=== PATIENT | female | born 1935 | race Caucasian/White ===

== ENCOUNTER 2016-11-22 09:37 | Outpatient (CLI) | payer MEDICARE, BC ==
[~2016-11-22] VITALS: Ht 162.6 cm; Wt 55.5 kg
--- NOTE | ~2016-11-22 | HEMODYNAMI ---
PATIENT:PAUL QUISPE MEDICAL RECORD: [id number] : 39 LOCATION:[facility] ADMISSION DATE: 11/22/16 Generatedon:11/22/201614:01 Patient name: PAUL QUISPE Patient #: [id number] SSN: : 1935 Date of study: 11/22/2016 Page: Of Hemodynamic Procedure Report Patient Data Patient Demographics Procedure consent was obtained First Name: PAUL Gender: Female Last Name: JOSE ENRIQUE : 1935 Middle Initial: PAUL Age: 81 year(s) Patient #: [id number] Race: Unknown Additional ID: [id number] Contact details [address]: [address] [place] [address] State: [place] City: [place] Zip code: [address] Past Medical History Allergies Allergen Reaction Date Comments Reported Demerol 11/22/2016 Admission Admission Data Admission Date: 11/22/2016 Admission Time: 9:37 Height (in.): 64 BSA: 1.59 (m2) Height (cm.): 162.56 BMI: 20.94 (kg/m2) Weight (lbs.): 122 Weight (kg.): 55.34 Procedure Procedure Types Cath Procedure Peripheral Cath Diagnostic Procedure Cath Peripheral Kyphoplasty Kyphoplasty Lumbar Procedure Description Procedure Date Procedure Date: 11/22/2016 Procedure Start Time: 13:12 Procedure Staff Name Function Todd Vasquez MD Performing Physician Waldo Dao MD Additional personnel Julio Bacon RT Scrub Brooklynn Granger RN Nurse Kelly Donovan RN Nurse Emily Parker RT Lathe Mechanic Emily Parker RT Monitor Procedure Data Cath Procedure Fluoroscopy Diagnostic fluoroscopy Total fluoroscopy Time: 8.1 time: 8.1 min min Diagnostic fluoroscopy Total fluoroscopy dose: dose: 302.4 mGy 302.4 mGy Hemodynamics Rest BSA: 1.59 (m2) O2 Consumption: Estimated: 141.59 (ml/min) O2 Consumption indexed : Estimated:89.05 (ml/min/m) Heart Rate: 67 (bpm) Snapshots Pre Cath Intra NCS Post Cath Vital Signs Time Heart Resp SPO2 NIBP (mmHg) Rhythm Pain Sedation Rate (ipm) (%) Status Level (bpm) 12:46:44 88 14 100 Measuring NSR 0 (11) 10(A) , No pain 12:47:04 88 12 100 197/107(153) NSR 0 (11) 10(A) , No pain 12:51:25 85 18 100 162/104(131) NSR 0 (11) 10(A) , No pain 12:55:41 84 100 134/81(97) NSR 0 (11) 10(A) , No pain 12:59:50 84 100 127/76(99) NSR 0 (11) 10(A) , No pain 13:04:00 84 100 111/70(93) NSR 0 (11) 10(A) , No pain 13:08:06 83 100 101/64(81) NSR 0 (11) 10(A) , No pain 13:12:10 83 100 96/60(78) NSR 0 (11) 10(A) , No pain 13:16:10 83 100 104/61(86) NSR 0 (11) 10(A) , No pain 13:20:17 82 1 100 90/51(70) NSR 0 (11) 10(A) , No pain 13:24:17 83 4 100 101/56(73) NSR 0 (11) 10(A) , No pain 13:28:23 82 15 99 92/49(69) NSR 0 (11) 10(A) , No pain 13:32:26 82 99 87/47(66) NSR 0 (11) 10(A) , No pain 13:36:28 82 99 83/47(60) NSR 0 (11) 10(A) , No pain 13:40:30 82 0 99 81/43(61) NSR 0 (11) 10(A) , No pain 13:44:32 83 99 87/44(62) NSR 0 (11) 10(A) , No pain 13:48:35 84 0 99 93/44(68) NSR 0 (11) 10(A) , No pain 13:52:39 86 41 99 93/49(72) NSR 0 (11) 10(A) , No pain 13:56:41 87 0 99 101/55(82) NSR 0 (11) 10(A) , No pain 14:00:40 87 6 99 115/66(83) NSR 0 (11) 10(A) , No pain Procedure Log Time Note 12:32:44 Patient Height : 64 cm 12:32:54 Patient Weight : 122 kg 12:33:49 Time tracking: Regular hours 12:34:12 Plan of Care:Hemodynamics will remain stable., Cardiac rhythm will remain stable., Comfort level will be maintained., Respiratory function will remain adequate., Patient/ family verbilizes understanding of procedure., Procedure tolerated without complication., Recovers from procedure without complications.. 12:34:56 patient will be sedated with tiva. see anesthesia notes for monitoring of patient during procedure 12:35:23 Patient received from Outpatients to IR Alert and oriented. Tansferred to table in Prone position. 12:35:28 Correct patient and procedure confirmed by team. 12:35:35 Signed procedure consent form obtained from patient. 12:36:19 - 12:36:25 Use device set IR Diagnostic 12:36:26 Sterile Angiographic Pack opened to sterile field. 12:36:28 Bag Decanter opened to sterile field. 12:37:49 Kyphon INTRO NEEDLE TROCAR opened to sterile field. 12:37:50 Kyphon HEAD KNITTING MACHINE FIXER KIT opened to sterile field. 12:37:51 KYPHON CEMENT DELIVERY SYSTEM GUN opened to sterile field. 12:37:53 KYPHON CEMENT DELIVERY SYSTEM CEMENT CARTRDGES opened to sterile field. 12:37:55 Kyphon INFLATOR BONE TAMP 15/2 opened to sterile field. 12:38:08 - 12:38:15 H&P Date Dictated: 11/22/2016 Within 30 days and on chart.. 12:38:19 Family in waiting room. 12:38:22 Patient NPO since Midnight. 12:38:37 Patient allergic to Demerol 12:38:42 Is the patient allergic to Iodine/contrast media? No. 12:40:44 - 12:41:06 IV patent on arrival in left wrist with 0.9% NaCl at KVO. 12:41:21 Lumbar area was prepped with dura-prep and draped in sterile fashion 12:41:23 Sharps counted by scrub and verified by Ellen 12:41:25 Alarms reviewed by RCris Jaimes 12:41:26 - 12:44:53 ECG and BP/O2 sat monitors applied to patient. 12:44:54 Vital chart was started 12:44:55 Baseline sample Acquired. 12:44:57 Full Disclosure recording started 12:56:10 Kyphon BONE BX DEVICE SZ2 opened to sterile field. 13:10:57 Physician arrived 13:11:09 --------ALL STOP TIME OUT------ 13:11:10 Final Timeout: patient, procedure, and site verified with staff and physician. All members of the team are in agreement. 13:11:48 Physical assessment completed. ASA score P 4 - A patient with severe systemic disease that is a constant threat to life as per Waldo Dao MD. 13:11:56 Sedation plan: TIVA Propofol 13:12:03 Procedure started. 13:12:13 Local anesthetic to Lumbar area with Lidocaine 1% by Todd Vasquez MD.INITIAL ACCESS ONLY 13:25:40 Jamshidi needle introduced. 13:30:09 Bone bx needle placed. 13:37:01 Kyphoplasty balloon introduced. 13:42:00 Cement introduced to vertebral body. 13:48:33 Jamshidi needle removed. 13:51:20 Procedure ended.(Physican Out) 13:51:36 Fluoroscopy time 08.10 minutes. 13:51:44 Fluoroscopy dose: 302.4 mGy 13:51:44 Flurop Dose total: 302.4 13:51:50 Sharps counted by scrub and verified by R.N. 13:51:54 Procedure and supply charges have been captured, reviewed, submitted an d are correct. 14:01:57 Vital chart was stopped Device Usage Item Name Manufacture Quantity Catalog Hospital Part Current Minimal Lot# / Number Charge Number Stock Stock Serial# Code Sterile Cardinal 1 [id number] 5 Angiographic Health Pack Bag Decanter Microtek 1 [id number] 5 [employer] Kyphon INTRO Medtronic 1 [id number] [id number] 5 NEEDLE TROCAR Kyphon Medtronic 1 C01B [id number] [id number] [id number] 5 HEAD KNITTING MACHINE FIXER KIT KYPHON Medtronic 1 [id number] 189564 5 CEMENT DELIVERY SYSTEM GUN KYPHON Medtronic 1 [id number] [id number] [id number] 5 CEMENT DELIVERY SYSTEM CEMENT CARTRDGES Kyphon Medtronic 1 K15B [id number] 446825 [id number] 5 INFLATOR BONE TAMP 15/2 Kyphon BONE Medtronic 1 F07A 218560 092899 723292 5 BX DEVICE SZ2 Signature Audit [place] Stage Time Signature Unsigned Intra-Procedure 11/22/2016 Emily Parker 2:01:54 PM RT(R) Signatures Monitor : Emily Parker RT Signature : Date : Time : [facility] [address] [place] [address]
[~2016-11-22 09:37] MED LIST: ADVAIR 250/501 DISK INH; APAP325 MG PO; BAYER CHEWABLE81 MG PO; CALCIUM 600+D T1 TA1 PO; CLEOCIN PREMIX600 MG IV; COLACE100 MG PO; COUMADIN7.5 MG PO; COZAAR100 MG PO; COZAAR50 MG PO; DITROPAN X10 MG/BOTT PO; DOXEPIN HCL10 MG PO; DULCOLAX10 MG/SUPP RC; FLORAJEN3 CAPS460 MG PO; IPRAT-ALBUT 0.5-3 ML UPD; KLOR-CON 1010 MEQ PO; LANOXIN125 MCG PO; LEVAQUIN PREMI750 MG IV; LOVENOX40 MG/0.4 SQ; LOVENOX60 MG/0.6 SC; METOPROLOL TART50 MG PO; MILK OF MAGNESI30 ML PO; MIRALAX17 GM PO; MUCINEX DM ER1 EAC1 PO; NALOXONE HC0.4 MG/M2 IV; OMNICEF300 MG PO; PEPCID20 MG PO; PHENERGAN25 M1 PO; PLAQUENIL200 MG PO; PLAVIX75 MG PO; PREDNISONE20 MG PO; PREDNISONE5 MG PO; PROTONIX40 MG PO; ROBAXIN500 MG PO; SALINE FLUSH10 ML IV; SENOKOT-S TABLE1 TAB PO; SODIUM CL 0.91000 ML IV; STERAPRED DS 1210 MG PO; STRESS 600 WI1 UDTAB PO; SUPER B COMPLE150 MG PO; TESSALON PERLE100 MG PO; ULTRAM50 MG PO; VENTOLIN HFA18 GM INH; XANAX0.5 MG PO; ZOFRAN4 MG PO; [UNRECOGNIZED DRUG - OTHER] IV
[2016-11-22 11:38] VITALS: BP 146/90; Ht 162.6 cm; Wt 55.5 kg
[2016-11-22 11:52] LABS: BASOPHILS 0.2 % (0.0-2.0); HEMATOCRIT 38.7 % (36.0-48.0); HEMOGLOBIN 12.4 g/dL (12-16); IMMATURE GRANULOCYTES 0.6 % (0-5); LYMPHOCYTES 8.6 % (15-50); MCV 90.4 fL (80.0-100.0); MEAN PLATELET VOLUME 9.1 fL (7.4-10.4); MONOCYTES 5.8 % (2-11); NEUTROPHILS 83.8 % (40-80); RBC 4.28 10x6/uL (4.00-5.40); RDW 15.5 % (11.5-14.5); WBC 11.9 10x3/uL (4.8-10.8)
[2016-11-22 11:55] LABS: APTT 26.4 SECONDS (22.8-39.4); INR 0.97 (0.85-1.17); PROTIME 12.8 SECONDS (11.6-15.0)
[2016-11-22 11:56] LABS: CALC OSMOLALITY 269 mosm/kg (275-300); CARBON DIOXIDE 31.2 mmol/L (21.0-32.0); CHLORIDE - SERUM 97 mmol/L (98-107); CREATININE - SERUM 0.7 mg/dL (0.6-1.3); GLUCOSE 96 mg/dL (74-106); POTASSIUM - SERUM 4.2 mmol/L (3.5-5.1); SODIUM 135 mmol/L (136-145); UREA NITROGEN 13 mg/dL (7-18); eGFR NON AFRICAN AMERICAN 85 mL/min (90-120)
[2016-11-22 11:59] LABS: PLATELET COUNT 198 10x3/uL (130-400)
--- NOTE | 2016-11-22 14:53 | NUR ---
VANCOMYCIN 1GRAM IN 250CC OF NORMAL SALINE INFUSING ON ADMIT
--- NOTE | 2016-11-22 16:15 | NUR ---
PATIENT AMBULATES TO BATHROOM WITHOUT DIZZINESS, WITH STAND-BY ASSISTANCE TO URINATE LARGE AMOUNT IN TOILET. PATIENT SOMEWHAT UNSTEADY, STATES UNSTEADINESS HAS BEEN INCREASING AND THIS IS NORMAL OVER THE PAST COUPLE MONTHS FOR HER. INSTRUCTED TO NOT GET OUT OF BED WITHOUT ASSISTANCE FROM A NURSE UNTIL DISCHARGE, STATES UNDERSTANDING
--- NOTE | 2016-11-22 16:55 | NUR ---
PATIENT STATES THAT DR DYSON WAS GOING TO PRESCRIBE HER SOME TORADOL, NO RX ON CHART, PAGED HERMELINDA WIRELESS DEVELOPMENT MANAGER NURSE
--- NOTE | 2016-11-22 17:10 | NUR ---
NO RESPONSE FROM RADIOLOGY NURSE, PATIENT STATES "SHE'S SUPPOSED TO CALL ME TOMORROW, I'LL JUST TALK TO HER ABOUT IT THEN. I'VE GOT TRAMADOL I CAN TAKE UNTIL THEN." LEFT WRIST PIV DC'D WITH TIP INTACT, PATIENT DRESSED IN PERSONAL CLOTHING
--- NOTE | 2016-11-22 17:20 | NUR ---
DISCHARGED HOME VIA WHEELCHAIR TO PRIVATE VEHICLE WITH SON
== END 2016-11-22 17:20 | disposition home or self-care (01) ==
LOC: D.OPS → D.RAD 12:00 → D.OPS 17:20
PROVIDERS: General Practice
DX: S32.019A Unspecified fracture of first lumbar vertebra, initial encounter for closed fracture (principal); J45.909 Unspecified asthma, uncomplicated; K21.9 Gastro-esophageal reflux disease without esophagitis; J44.9 Chronic obstructive pulmonary disease, unspecified; I10 Essential (primary) hypertension; E03.9 Hypothyroidism, unspecified

== ENCOUNTER → 2016-12-09 09:51 | Outpatient (CLI) | payer MEDICARE, BC ==
[2016-11-22 11:38] VITALS: BMI 21.0
[~2016-12-09 09:51] MED LIST changes: +ACETAMINOPHEN500 M1 PO; +ASPIRIN EC81 M1 PO; +CALTRATE 600 M600 M1 PO; +FLUTICASONE PRO16 GM NASAL; +GABAPENTIN100 MG PO; +GAS-X80 MG PO; +IBUPROFEN800 MG PO; +IPRATROPIUM BR21 MCG NASAL; +NORCO 7.5/325 T1 TA1 PO; +PREDNISONE10 MG PO; +VITAMIN B COMPL1 TAB PO; +VITAMIN D5000 UNIT PO; +XANAX0.25 MG PO
[2016-12-09 10:54] LABS: APPEARANCE CLEAR (CLEAR); BACTERIA MODERATE /hpf (NONE SEEN); BILIRUBIN NEGATIVE (NEGATIVE); COLOR YELLOW (YELLOW); EPITHELIAL CELLS 0-5 /hpf (0-5); GLUCOSE NEGATIVE (NEGATIVE); KETONE NEGATIVE (NEGATIVE); LEUKOCYTE ESTERASE 1+ (NEGATIVE); MUCUS <1+ /lpf (NONE SEEN); NITRITE NEGATIVE (NEGATIVE); PROTEIN NEGATIVE (NEGATIVE); RED CELLS - URINE RARE /hpf (0-5); SPECIFIC GRAVITY 1.015 (1.005-1.020); UROBILINOGEN NORMAL (NORMAL); WHITE CELLS - URINE 0-5 /hpf (0-5)
== END | disposition home or self-care (01) ==
LOC: D.LAB 09:51
PROVIDERS: General Practice
DX: N39.0 Urinary tract infection, site not specified (principal)

== ENCOUNTER 2016-12-14 12:44 | Outpatient (CLI) | payer MEDICARE, BC ==
[~2016-12-14] VITALS: Ht 162.6 cm; Wt 54.4 kg
[2016-12-14 13:51] VITALS: Ht 162.6 cm; Wt 54.4 kg
[2016-12-14 13:57] LABS: APPEARANCE CLEAR (CLEAR); BILIRUBIN NEGATIVE (NEGATIVE); COLOR STRAW (YELLOW); GLUCOSE NEGATIVE (NEGATIVE); KETONE NEGATIVE (NEGATIVE); LEUKOCYTE ESTERASE NEGATIVE (NEGATIVE); NITRITE NEGATIVE (NEGATIVE); PROTEIN NEGATIVE (NEGATIVE); UROBILINOGEN NORMAL (NORMAL)
== END 2016-12-14 14:00 | disposition home or self-care (01) ==
LOC: D.OPS 12:44
PROVIDERS: General Practice
DX: N39.0 Urinary tract infection, site not specified (principal)

== ENCOUNTER → 2017-04-19 11:47 | Outpatient (CLI) | payer MEDICARE, BC ==
[2016-12-17 10:29] VITALS: BMI 20.8
== END | disposition home or self-care (01) ==
LOC: D.RAD 11:47
DX: J32.9 Chronic sinusitis, unspecified (principal)

== ENCOUNTER 2017-08-12 21:33 | Inpatient (IN) | payer MEDICARE, BC ==
[2017-08-12 23:23] LABS: BASOPHILS 0.1 % (0-2); EOSINOPHILS 0.7 % (0-7); HEMATOCRIT 35.3 % (36.0-48.0); HEMOGLOBIN 11.3 g/dL (12-16); IMMATURE GRANULOCYTES 1.5 % (0-5); LYMPHOCYTES 11.2 % (15-50); MCH 28.4 pg (26.0-34.0); MCV 88.7 fL (80.0-100.0); MEAN PLATELET VOLUME 8.8 fL (7.4-10.4); MONOCYTES 9.3 % (2-11); NEUTROPHILS 77.2 % (40-80); RBC 3.98 10x6/uL (4.00-5.40); RDW 13.4 % (11.5-14.5); WBC 9.4 10x3/uL (4.8-10.8)
[2017-08-12 23:31] LABS: PLATELET COUNT 277 10x3/uL (130-400)
[2017-08-12 23:36] LABS: ANION GAP 11.3 mmol/L (8-16); CALCIUM 9.7 mg/dL (8.5-10.1); CARBON DIOXIDE 33.9 mmol/L (21.0-32.0); CREATININE - SERUM 1.4 mg/dL (0.6-1.3); POTASSIUM - SERUM 4.2 mmol/L (3.5-5.1)
[2017-08-13] VITALS (7 sets, daily range): BP systolic 116–185; BP diastolic 65–91; BMI 22.3
--- NOTE | 2017-08-13 08:30 | NUR ---
REPORT RECIEVED ASSUMED CARE. PATIENT IN BED WITH IV INTACT. NO COMPLAINTS AT THIS TIME. CALL LIGHT WITHIN REACH.
--- NOTE | 2017-08-13 10:20 | NUR ---
PATIENT IN WITH PT.
[2017-08-13] MEDS ORDERED: PREDNISONE5 MG PO (12:15)
--- NOTE | 2017-08-13 14:03 | NUR ---
PATIENT RECIEVED TORADOL SHOT IM AT THIS TIME. EXPLAINED TO PATIENT THAT CAN ONLY HAVE ONE DOSE. VERBALIZED UNDERSTANDING. CALL LIGHT WITHIN REACH.
--- NOTE | 2017-08-13 18:45 | NUR ---
PATIENT IN BED WITH NO COMPLAINTS AT THIS TIME. CALL LIGHT WITHIN REACH.
[2017-08-13] MEDS ORDERED: NEURONTIN 300300 MG PO (21:03)
--- NOTE | 2017-08-13 22:30 | NUR ---
PT ALERT & ORIENTED. PT UP WITH WALKER TO BATHROOM - GAIT STEADY, STANDBY ASSIST ONLY. PT COMPLAINED SHE DID NOT SLEEP THE NIGHT BEFORE AND CANNOT GO TO SLEEP TONIGHT EITHER ALSO C/O INDIGESTION. REQUESTED HER XANAX AND PEPCID WHICH SHE TAKES AT HOME. CALLED DR STEWART. RECEIVED ORDER FOR PEPCID ONLY. MADE WARM PACKS FOR CHRONIC BILAT SHOULDER PAIN AND LEFT LEG/HIP PAIN. NO OTHER NEEDS. WILL CONTINUE TO MONITOR.
[2017-08-14 04:00] VITALS: BP 143/86
--- NOTE | 2017-08-14 07:00 | NUR ---
REPORT RECIEVED, ASSUMED CARE. PATIENT IN BED WITH NO COMPLAINTS AT THIS TIME. CALL LIGHT WITHIN REACH. WILL CONTINUE TO MONITOR.
[2017-08-14 08:10] VITALS: BP 140/80
--- NOTE | 2017-08-14 10:30 | NUR ---
PATIENT IN BED WITH NO COMPLAINTS. WAITING FOR DR. STEWART. CALL LIGHT WITHIN REACH.
--- NOTE | 2017-08-14 10:43 | NUR ---
RATIONALE FOR SCD'S EXPLAINED. REFUSED SCD'S
--- NOTE | 2017-08-14 11:38 | NUR ---
vIs the patient Alert and Oriented? Yes 0 * How many steps to enter\exit or inside your home? one 0 * PCP DR Pinto 0 * Pharmacy [facility] [address] * Preadmission Environment Home Alone 0 * ADLs Independent 0 * Equipment Cane Nebulizer Oxygen Rolling Walker Walker 0 * Other Equipment DME from [facility] call system 0 * List name and contact numbers for known caregivers / representatives who currently or will assist patient after discharge: Artemio Bernal [facility]- [phone] 0 * Community resources currently utilized None 0 * Please name any agencies selected above. N/A 0 * Additional services required to return to the preadmission environment? Yes 0 * Can the patient safely return to the preadmission environment? Yes 0 * Has this patient been hospitalized within the prior 30 days at any hospital? No 0
[2017-08-14 11:52] VITALS: BP 128/66
--- NOTE | 2017-08-14 11:54 | NUR ---
Late Entry 1030 CM RECEIVED REQUEST TO [facility]RANGE HOME HEALTH SERVICES. MET WITH THE PATIENT AT THE BEDSIDE. CONFIRMED ADDRESS AND CONTACT INFORMATION. ASK PATIENT IF MD HAS SPOKEN WITH HER REGARDING HOME HEALTH ORDER. SHE STATES SHE WAS NOT AWARE OF ORDER. DISCUSSED HOME HEALTH AND PROVIDERS. PATIENT HAS HAD HOME HEALTH PREVIOUSLY. SHE DECLINES AT THIS TIME. SHE STATES SHE IS NOT HOMEBOUND. SHE GOES OUT AND DRIVES HER SELF. SHE HAS AN APPOINTMENT WITH DR LEMA ON TUESDAY AND DR CRAMER, HER PCP, ON TUESDAY. SHE WILL DISCUSS HOME HEALTH W/ DR CRAMER. WILL CONSIDER THE [facility] FOR PHYSICAL THERAPY. HAS A HOME EMERGENCY CALL SYSTEM W/ [employer]. HAS TOWEL BARS ON BOTH SIDES OF THE 3 STAIRS GOING FROM ONE ROOM TO ANOTHER IN HER HOME. ONLY ONE STEP TO ENTER HER HOME. DENIES ANY OTHER NEEDS. HER SON WILL PROVIDE TRANSPORTATION TO HOME. SHE WILL F/U WITH HER PCP REGARDING ANY SERVICES POST DISCHARGE.
--- NOTE | 2017-08-14 13:00 | NUR ---
PATIENT RECIEVED DISCHARGE INSTRUCTIONS. VERBALIZED UNDERSTANDING. NO QUESTIONS AT THIS TIME. STATED SHE DIDNT WANT HOME HEALTH BC SHE WASNT GOING TO HAVE TO STAY HOME AT THIS TIME. STATED SHE WOULD TALK TO DR. CRAMER AND DO OP PT ON HER OWN. WAITING FOR FAMILY FOR DC. CALL LIGHT WITHIN REACH.
== END 2017-08-14 13:50 | disposition home or self-care (01) | DRG 552 ==
LOC: D.ER 21:33 → D.MS 08-13 02:33
PROVIDERS: Family Medicine; ADMIT Family Medicine
DX: M54.9 Dorsalgia, unspecified (principal); I42.9 Cardiomyopathy, unspecified; I13.0 Hypertensive heart and chronic kidney disease with heart failure and stage 1 through stage 4 chronic kidney disease, or unspecified chronic kidney disease; N18.3 Chronic kidney disease, stage 3 (moderate); R53.1 Weakness; R29.6 Repeated falls; R26.2 Difficulty in walking, not elsewhere classified; M54.30 Sciatica, unspecified side; M19.90 Unspecified osteoarthritis, unspecified site; I50.9 Heart failure, unspecified; J44.9 Chronic obstructive pulmonary disease, unspecified

== ENCOUNTER → 2018-08-15 10:12 | Outpatient (CLI) | payer MEDICARE, BC ==
[2017-08-13 08:58] VITALS: BMI 22.3
[~2018-08-15 10:12] MED LIST changes: +DIFLUCAN100 MG PO; +MAG-OXIDE400 MG PO; +NEURONTIN 300300 MG PO
== END | disposition home or self-care (01) ==
LOC: D.CT 10:12
DX: R05 Cough (principal)

== ENCOUNTER 2018-09-04 11:30 | Inpatient (IN) | payer MEDICARE, BC ==
[~2018-09-04] VITALS: Ht 162.6 cm; Wt 65.5 kg
--- NOTE | ~2018-09-04 | MORECARE ---
CASE MANAGEMENT DISCHARGE SUMMARY PATIENT: PACO BERNAL UNIT: [id number] ADM DATE: 09/04/18 AGE: 83 : 37 SEX: F ROOM/BED: D.2106 AUTHOR: JACKELYN FERRER PHYSICIAN: REFERRING PHYSICIAN: MATTY CRAMER DO DATE OF SERVICE: 09/04/18 Discharge Plan Patient Name: PACO BERNAL Facility: [facility]:[place] : 1935 Planned Disposition: Home Anticipated Discharge Date: 09/08/18 Discharge Date: Expected LOS: 4 Initial Reviewer: [email or web address] Initial Review Date: 09/04/2018 Generated: 09/04/18 3:48 pm DCPIA - Discharge Planning Initial Assessment Updated by [email or web address]: Alyson Antoine on 09/04/18 2:46 pm * Is the patient Alert and Oriented? Yes * How many steps to enter\exit or inside your home? One * PCP Dr. Cramer * Pharmacy [facility] on [address] * Preadmission Environment Home Alone * ADLs Independent * Equipment Cane Nebulizer Oxygen Rolling Walker * List name and contact numbers for known caregivers / representatives who currently or will assist patient after discharge: Artemio Glynnanila [facility] - [phone] Alexmariella Bernal [facility] [phone] * Verbal permission to speak to the caregivers and representatives has been obtained from the patient. Yes * Community resources currently utilized None * Additional services required to return to the preadmission environment? No * Can the patient safely return to the preadmission environment? Yes * Has this patient been hospitalized within the prior 30 days at any hospital? No Patient Name: PACO BERNAL Page 88808 at 1448 All edits/amendments must be made on the electronic document DICTATION DATE: 09/04/181446 VEGETABLE FARM MANAGER: ANABELLA 09/04/181446 RPT#: [id number] DC DATE: STATUS: ADM IN [facility] [address] [place] [address] END OF REPORT
--- NOTE | ~2018-09-04 | MORECARE ---
CASE MANAGEMENT DISCHARGE SUMMARY PATIENT: PACO BERNAL UNIT: [id number] ADM DATE: 09/04/18 AGE: 83 : 37 SEX: F ROOM/BED: D.8737 AUTHOR: JACKELYN FERRER PHYSICIAN: REFERRING PHYSICIAN: PABLO CRAMER DO DATE OF SERVICE: 09/10/18 Discharge Plan Patient Name: PACO BERNAL Facility: [facility]:[place] : 1935 Planned Disposition: Home Anticipated Discharge Date: 09/08/18 Discharge Date: Expected LOS: 4 Initial Reviewer: [email or web address] Initial Review Date: 09/04/2018 Generated: 09/10/18 11:14 am DCP- Discharge Planning Updated by [email or web address]: Alyson Antoine on 09/04/18 2:[address] Patient Name: PACO BERNAL Admission Status: Elective Accout number: [id number] Admission Date: 09-04-2018 : 1935 Admission Diagnosis: Attending: Pablo Cramer Current LOS: 1 Anticipated DC Date: 09-08-2018 Planned Disposition: Home Primary Insurance: MEDICARE A & B Discharge Planning Comments: CM met with patient and multiple family members to complete initial dc planning assessment. CM educated patient on the CM role and verbal consent given by patient to complete assessment. Patient lives at home alone and reports she is independent with ADL's and IADL's. At discharge patient plans to return home and feels this is a safe discharge. Patient wears o2 at HS and prn sometimes. Patient denied known discharge needs at this time. CM will continue to follow and will assist as needed with dc plans/needs. See below for more assessment information. Spinner Tender: Alyson Antoine RN, [facility] DCPIA - Discharge Planning Initial Assessment Updated by [email or web address]: Alyson Antoine on 09/04/18 2:46 pm * Is the patient Alert and Oriented? Yes * How many steps to enter\exit or inside your home? One * PCP Dr. Cramer * Pharmacy [facility] [address] * Preadmission Environment Home Alone * ADLs Independent * Equipment Cane Nebulizer Oxygen Rolling Walker * List name and contact numbers for known caregivers / representatives who currently or will assist patient after discharge: Artemio Grande [phone] Alex Bernal - yoni - [phone] * Verbal permission to speak to the caregivers and representatives has been obtained from the patient. Yes * Community resources currently utilized None * Additional services required to return to the preadmission environment? No * Can the patient safely return to the preadmission environment? Yes * Has this patient been hospitalized within the prior 30 days at any hospital? No Last DP export: 09/04/18 3:04 Patient Name: PACO BERNAL Page 15830 at 1014 All edits/amendments must be made on the electronic document DICTATION DATE: 09/10/18 1014 HOT PACKER: ANABELLA 09/10/18 1014 RPT#: [id number] DC DATE: STATUS: ADM IN [facility] [address] [place] [address] END OF REPORT
--- NOTE | ~2018-09-04 | MORECARE ---
CASE MANAGEMENT DISCHARGE SUMMARY PATIENT: PACO BERNAL UNIT: [id number] ADM DATE: 09/04/18 AGE: 83 : 37 SEX: F ROOM/BED: D.5595 AUTHOR: JACKELYN FERRER PHYSICIAN: REFERRING PHYSICIAN: PABLO CRAMER DO DATE OF SERVICE: 09/12/18 Discharge Plan Patient Name: PACO BERNAL Facility: [facility]:[place] : 1935 Planned Disposition: Home Anticipated Discharge Date: 09/11/18 Discharge Date: 09/11/2018 Expected LOS: 7 Initial Reviewer: [id number] Initial Review Date: 09/04/2018 Generated: 09/12/18 9:03 am Comments DCP- Discharge Planning Updated by [email or web address]: Jo Ann Snider on 09/10/18 9:[address] Patient Name: PACO BERNAL Encounter No: [id number] : 1935 Primary Insurance: MEDICARE A & B Anticipated DC Date: 09-08-2018 Planned Disposition: Home External Planned Provider: : DCP follow-up note: Patient in agreement with discharge plan. No changes to plan. Patient refused home health again when asked. Case management will follow and assist as needed. Jo Ann Snider DCP- Discharge Planning Updated by [email or web address]: Alyson Antoine on 09/04/18 2:[address] Patient Name: PACO BERNAL Admission Status: Elective Accout number: [id number] Admission Date: 09-04-2018 : 1935 Admission Diagnosis: Attending: Pablo Cramer Current LOS: 1 Anticipated DC Date: 09-08-2018 Planned Disposition: Home Primary Insurance: MEDICARE A & B Discharge Planning Comments: CM met with patient and multiple family members to complete initial dc planning assessment. CM educated patient on the CM role and verbal consent given by patient to complete assessment. Patient lives at home alone and reports she is independent with ADL's and IADL's. At discharge patient plans to return home and feels this is a safe discharge. Patient wears o2 at HS and prn sometimes. Patient denied known discharge needs at this time. CM will continue to follow and will assist as needed with dc plans/needs. See below for more assessment information. Family Living Educator: Alyson Antoine RN, [facility] DCPIA - Discharge Planning Initial Assessment Updated by [email or web address]: Alyson Antoine on 09/04/18 2:46 pm * Is the patient Alert and Oriented? Yes * How many steps to enter\exit or inside your home? One * PCP Dr. Cramer * Pharmacy [facility] [address] * Preadmission Environment Home Alone * ADLs Independent * Equipment Cane Nebulizer Oxygen Rolling Walker * List name and contact numbers for known caregivers / representatives who currently or will assist patient after discharge: Artemio Gottlieb [facility] - [phone] Alex Bernal [facility] [phone] * Verbal permission to speak to the caregivers and representatives has been obtained from the patient. Yes * Community resources currently utilized None * Additional services required to return to the preadmission environment? No * Can the patient safely return to the preadmission environment? Yes * Has this patient been hospitalized within the prior 30 days at any hospital? No Coverage Notice Reviewer: [email or web address] Christiane Snider Notice Issued Date-Time: 09/10/2018 10:45 Notice Type: IM Discharge Notice Notice Delivered To: Patient Relationship to Patient: Cabinetmaker Apprentice Name: Delivery Method: HAND - Hand Delivered Mee Days: Prior Verbal Notification: Recipient Understood Notice: Yes Recipient Signature: Yes Med Rec Note Co-signed by Attending: Coverage Notice Comment: Last DP export: 09/10/18 9:21 a Patient Name: PACO BERNAL Page 77763 at 0803 All edits/amendments must be made on the electronic document DICTATION DATE: 09/12/18801 CLAIMS REPRESENTATIVE: DM 09/12/18801 RPT#: [id number] DC DATE:09/11/18 STATUS: DIS IN [facility] [address] [place] [address] END OF REPORT
--- NOTE | ~2018-09-04 | MORECARE ---
CASE MANAGEMENT DISCHARGE SUMMARY PATIENT: PACO BERNAL UNIT: [id number] ADM DATE: 09/04/18 AGE: 83 : 37 SEX: F ROOM/BED: D.7995 AUTHOR: JACKELYN FERRER PHYSICIAN: REFERRING PHYSICIAN: PABLO CRAMER DO DATE OF SERVICE: 09/04/18 Discharge Plan Patient Name: PACO BERNAL Facility: [facility]:[place] : 1935 Planned Disposition: Home Anticipated Discharge Date: 09/08/18 Discharge Date: Expected LOS: 4 Initial Reviewer: [email or web address] Initial Review Date: 09/04/2018 Generated: 09/04/18 4:04 pm DCP- Discharge Planning Updated by [email or web address]: Alyson Antoine on 09/04/18 1:[address] Patient Name: PACO BERNAL Admission Status: Elective Accout number: [id number] Admission Date: 09-04-2018 : 1935 Admission Diagnosis: Attending: Pablo Cramer Current LOS: 1 Anticipated DC Date: 09-08-2018 Planned Disposition: Home Primary Insurance: MEDICARE A & B Discharge Planning Comments: CM met with patient and multiple family members to complete initial dc planning assessment. CM educated patient on the CM role and verbal consent given by patient to complete assessment. Patient lives at home alone and reports she is independent with ADL's and IADL's. At discharge patient plans to return home and feels this is a safe discharge. Patient wears o2 at HS and prn sometimes. Patient denied known discharge needs at this time. CM will continue to follow and will assist as needed with dc plans/needs. See below for more assessment information. Cytogenetic Technologist: Alyson Antoine RN, [facility] DCPIA - Discharge Planning Initial Assessment Updated by [email or web address]: Alyson Antoine on 09/04/18 2:46 pm * Is the patient Alert and Oriented? Yes * How many steps to enter\exit or inside your home? One * PCP Dr. Cramer * Pharmacy [facility] [address] * Preadmission Environment Home Alone * ADLs Independent * Equipment Cane Nebulizer Oxygen Rolling Walker * List name and contact numbers for known caregivers / representatives who currently or will assist patient after discharge: Artemio Grande [phone] Alex Bernal - yoni - [phone] * Verbal permission to speak to the caregivers and representatives has been obtained from the patient. Yes * Community resources currently utilized None * Additional services required to return to the preadmission environment? No * Can the patient safely return to the preadmission environment? Yes * Has this patient been hospitalized within the prior 30 days at any hospital? No Last DP export: 09/04/18 1:48 Patient Name: PACO BERNAL Page 18257 at 1504 All edits/amendments must be made on the electronic document DICTATION DATE: 09/04/181502 GUIDANCE SERVICES COORDINATOR: ANABELLA 09/04/181502 RPT#: [id number] DC DATE: STATUS: ADM IN [facility] [address] [place] [address] END OF REPORT
--- NOTE | ~2018-09-04 | MORECARE ---
CASE MANAGEMENT DISCHARGE SUMMARY PATIENT: PACO BERNAL UNIT: [id number] ADM DATE: 09/04/18 AGE: 83 : 37 SEX: F ROOM/BED: D.2969 AUTHOR: JACKELYN FERRER PHYSICIAN: REFERRING PHYSICIAN: PABLO CRAMER DO DATE OF SERVICE: 09/10/18 Discharge Plan Patient Name: PACO BERNAL Facility: [facility]:[place] : 1935 Planned Disposition: Home Anticipated Discharge Date: 09/08/18 Discharge Date: Expected LOS: 4 Initial Reviewer: [email or web address] Initial Review Date: 09/04/2018 Generated: 09/10/18 11:21 am Comments DCP- Discharge Planning Updated by [id number]: Jo Ann Snider on 09/10/18 9:[address] Patient Name: PACO BERNAL Encounter No: [id number] : 1935 Primary Insurance: MEDICARE A & B Anticipated DC Date: 09-08-2018 Planned Disposition: Home External Planned Provider: : DCP follow-up note: Patient in agreement with discharge plan. No changes to plan. Patient refused home health again when asked. Case management will follow and assist as needed. Jo Ann Snider DCP- Discharge Planning Updated by [email or web address]: Alyson Antoine on 09/04/18 2:[address] Patient Name: PACO BERNAL Admission Status: Elective Accout number: [id number] Admission Date: 09-04-2018 : 1935 Admission Diagnosis: Attending: Pablo Cramer Current LOS: 1 Anticipated DC Date: 09-08-2018 Planned Disposition: Home Primary Insurance: MEDICARE A & B Discharge Planning Comments: CM met with patient and multiple family members to complete initial dc planning assessment. CM educated patient on the CM role and verbal consent given by patient to complete assessment. Patient lives at home alone and reports she is independent with ADL's and IADL's. At discharge patient plans to return home and feels this is a safe discharge. Patient wears o2 at HS and prn sometimes. Patient denied known discharge needs at this time. CM will continue to follow and will assist as needed with dc plans/needs. See below for more assessment information. Building Engineer: Alyson Antoine RN, [facility] DCPIA - Discharge Planning Initial Assessment Updated by [email or web address]: Alyson Antoine on 09/04/18 2:46 pm * Is the patient Alert and Oriented? Yes * How many steps to enter\exit or inside your home? One * PCP Dr. Cramer * Pharmacy [facility] [address] * Preadmission Environment Home Alone * ADLs Independent * Equipment Cane Nebulizer Oxygen Rolling Walker * List name and contact numbers for known caregivers / representatives who currently or will assist patient after discharge: [facility] - [phone] Alex Bernal [facility] [phone] * Verbal permission to speak to the caregivers and representatives has been obtained from the patient. Yes * Community resources currently utilized None * Additional services required to return to the preadmission environment? No * Can the patient safely return to the preadmission environment? Yes * Has this patient been hospitalized within the prior 30 days at any hospital? No Last DP export: 09/10/18 9:14 a Patient Name: PACO BERNAL Page [id number] at 1021 All edits/amendments must be made on the electronic document DICTATION DATE: 09/10/18 1021 AEROSPACE MEDICINE PHYSICIAN: ANABELLA 09/10/18 1021 RPT#: [id number] DC DATE: STATUS: ADM IN [facility] [address] [place] [address] END OF REPORT
--- NOTE | ~2018-09-04 | OP ---
PATIENT NAME: PACO BERNAL MEDICAL RECORD: [id number] :[birth year] LOCATION:D.M2 D.2107 ADMISSION DATE:09/04/18 SURGEON: GAIL ROMERO MD DATE OF OPERATION: 09/07/2018 PROCEDURE: Fiberoptic bronchoscopy. INDICATION: Ms. Bernal is an 83-year-old female who presented with pneumonia. Fiberoptic bronchoscopy was carried out to get specimen for culture and sensitivity and inspect the airway. MEDICATIONS: Versed 4 mg IV in divided doses. MONITORING: EKG, pulse, and blood pressure were monitored throughout the procedure. PROCEDURE IN DETAIL: The fiberoptic was easily passed through the mouth. The vocal cords were moving equally in phonation. The epiglottis was normal. The vallecula was normal. The main trachea was normal. The cassie was sharp. There were whitish secretions in the right main bronchus. The subsegment to the right upper lobe was within normal range. The subsegment to the right middle lobe and right lower lobe within normal range. No endobronchial lesion was seen. The left main bronchus was normal. The subsegment to the left upper lobe lingula within normal range. No endobronchial lesion was seen. The subsegment to the left lower lobe within normal range. No endobronchial lesion was seen. Specimen washing was obtained from both sides and sent for routine culture and sensitivity, AFB, fungus, and cytology. Overall, the patient tolerated the procedure very well. TRANSINT:[id number] Voice Confirmation ID: [id number] DOCUMENT ID: [id number] GAIL ROMERO MD at 1234 CC: [id number] DICTATION DATE: 09/07/181899 MOBILE HOMES REPAIRER: 09/07/181945 DIS IN 09/11/18 [facility] [address] [place] [address]
[~2018-09-04 11:30] MED LIST changes: -DIFLUCAN100 MG PO; -MAG-OXIDE400 MG PO
[2018-09-04 11:52] LABS: BASOPHILS 0.1 % (0-2); EOSINOPHILS 0.4 % (0-7); HEMATOCRIT 33.6 % (36.0-48.0); HEMOGLOBIN 10.2 g/dL (12-16); IMMATURE GRANULOCYTES 0.4 % (0-5); LYMPHOCYTES 4.2 % (15-50); MCH 27.1 pg (26.0-34.0); MCHC 30.4 g/dL (31.0-37.0); MCV 89.4 fL (80.0-100.0); NEUTROPHILS 89.9 % (40-80); RBC 3.76 10x6/uL (4.00-5.40); RDW 15.4 % (11.5-14.5); WBC 16.3 10x3/uL (4.8-10.8)
[2018-09-04 12:02] LABS: PLATELET COUNT 190 10x3/uL (130-400)
[2018-09-04 12:20] LABS: ALBUMIN 3.1 g/dL (3.4-5.0); ANION GAP 8.9 mmol/L (8-16); BILIRUBIN - TOTAL 0.59 mg/dL (0.2-1.3); CALCIUM 9.2 mg/dL (8.5-10.1); CARBON DIOXIDE 33.5 mmol/L (21.0-32.0); CREATININE - SERUM 1.6 mg/dL (0.6-1.3); POTASSIUM - SERUM 4.4 mmol/L (3.5-5.1); PROTEIN - SERUM 7.3 g/dL (6.4-8.2)
[2018-09-04 12:25] LABS: MAGNESIUM - SERUM 2.1 mg/dL (1.8-2.4)
[2018-09-04] MEDS ORDERED: MAG-OXIDE400 MG PO (15:23)
[2018-09-04 15:55] VITALS: BP 132/70; BMI 24.4
[2018-09-04 20:34] VITALS: BP 101/56
[2018-09-05 01:25] VITALS: BP 117/64
[2018-09-05 05:03] VITALS: BP 114/70
[2018-09-05 05:21] LABS: BASOPHILS 0.1 % (0-2); EOSINOPHILS 0.1 % (0-7); HEMATOCRIT 27.8 % (36.0-48.0); HEMOGLOBIN 8.5 g/dL (12-16); IMMATURE GRANULOCYTES 0.3 % (0-5); LYMPHOCYTES 3.7 % (15-50); MCH 26.9 pg (26.0-34.0); MCHC 30.6 g/dL (31.0-37.0); MEAN PLATELET VOLUME 9.3 fL (7.4-10.4); MONOCYTES 1.6 % (2-11); NEUTROPHILS 94.2 % (40-80); PLATELET COUNT 184 10x3/uL (130-400); RBC 3.16 10x6/uL (4.00-5.40); RDW 15.1 % (11.5-14.5)
[2018-09-05 05:43] LABS: ANION GAP 9.9 mmol/L (8-16); CALCIUM 8.1 mg/dL (8.5-10.1); CARBON DIOXIDE 32.7 mmol/L (21.0-32.0); CREATININE - SERUM 1.5 mg/dL (0.6-1.3); MAGNESIUM - SERUM 2.3 mg/dL (1.8-2.4); PHOSPHOROUS 3.5 mg/dL (2.5-4.9); POTASSIUM - SERUM 4.6 mmol/L (3.5-5.1)
[2018-09-05 09:02] VITALS: BP 99/49
[2018-09-05 10:43] VITALS: BMI 24.3
[2018-09-05 11:20] VITALS: BP 101/60
[2018-09-05 15:45] VITALS: BP 135/61
[2018-09-05 18:39] VITALS: Ht 162.6 cm; Wt 65.5 kg
[2018-09-05 20:26] VITALS: BP 147/77
[2018-09-06 01:01] VITALS: BP 165/91
[2018-09-06 04:48] VITALS: BP 150/87
[2018-09-06 05:02] LABS: BASOPHILS 0 % (0-2); EOSINOPHILS 0 % (0-7); LYMPHOCYTES 4.9 % (15-50); MCH 27.9 pg (26.0-34.0); MCV 87.3 fL (80.0-100.0); MEAN PLATELET VOLUME 9.4 fL (7.4-10.4); MONOCYTES 4.4 % (2-11); NEUTROPHILS 89.7 % (40-80); PLATELET COUNT 211 10x3/uL (130-400); WBC 12.6 10x3/uL (4.8-10.8)
[2018-09-06 05:03] LABS: HEMATOCRIT 35.6 % (36.0-48.0); HEMOGLOBIN 11.4 g/dL (12-16); RBC 4.08 10x6/uL (4.00-5.40)
[2018-09-06 05:21] LABS: ALBUMIN 2.6 g/dL (3.4-5.0); ANION GAP 11.9 mmol/L (8-16); BILIRUBIN - TOTAL 0.8 mg/dL (0.2-1.3); CALCIUM 8.2 mg/dL (8.5-10.1); CARBON DIOXIDE 31.5 mmol/L (21.0-32.0); MAGNESIUM - SERUM 2.1 mg/dL (1.8-2.4); PHOSPHOROUS 3.6 mg/dL (2.5-4.9); POTASSIUM - SERUM 4.4 mmol/L (3.5-5.1); PROTEIN - SERUM 6.4 g/dL (6.4-8.2)
[2018-09-06 05:23] LABS: CREATININE - SERUM 1.1 mg/dL (0.6-1.3)
[2018-09-06 12:14] VITALS: BP 135/71
[2018-09-06 16:59] VITALS: BP 152/80
[2018-09-06 18:17] LABS: BASOPHILS 0.1 % (0-2); EOSINOPHILS 0 % (0-7); HEMATOCRIT 34.5 % (36.0-48.0); HEMOGLOBIN 10.8 g/dL (12-16); IMMATURE GRANULOCYTES 1.4 % (0-5); LYMPHOCYTES 5.6 % (15-50); MCH 27.4 pg (26.0-34.0); MCHC 31.3 g/dL (31.0-37.0); MCV 87.6 fL (80.0-100.0); MONOCYTES 5.8 % (2-11); NEUTROPHILS 87.1 % (40-80); PLATELET COUNT 186 10x3/uL (130-400); RBC 3.94 10x6/uL (4.00-5.40); RDW 14.8 % (11.5-14.5); WBC 13.7 10x3/uL (4.8-10.8)
[2018-09-06 18:26] LABS: APTT 24.8 SECONDS (22.8-39.4); INR 1.04 (0.85-1.17); PROTIME 13.3 SECONDS (11.6-15.0)
[2018-09-06 20:00] VITALS: BP 148/89
[2018-09-07] VITALS (8 sets, daily range): BP systolic 126–154; BP diastolic 58–90
[2018-09-07 04:59] LABS: BASOPHILS 0.1 % (0-2); EOSINOPHILS 0 % (0-7); HEMATOCRIT 33.3 % (36.0-48.0); HEMOGLOBIN 10.8 g/dL (12-16); IMMATURE GRANULOCYTES 1.6 % (0-5); LYMPHOCYTES 6.1 % (15-50); MCH 28.4 pg (26.0-34.0); MCHC 32.4 g/dL (31.0-37.0); MCV 87.6 fL (80.0-100.0); MEAN PLATELET VOLUME 9.1 fL (7.4-10.4); MONOCYTES 3.5 % (2-11); NEUTROPHILS 88.7 % (40-80); PLATELET COUNT 213 10x3/uL (130-400); RDW 14.9 % (11.5-14.5); WBC 11.6 10x3/uL (4.8-10.8)
[2018-09-07 05:21] LABS: ALBUMIN 2.5 g/dL (3.4-5.0); ANION GAP 11.7 mmol/L (8-16); BILIRUBIN - TOTAL 0.25 mg/dL (0.2-1.3); CALCIUM 8.3 mg/dL (8.5-10.1); CARBON DIOXIDE 29.8 mmol/L (21.0-32.0); MAGNESIUM - SERUM 2.2 mg/dL (1.8-2.4); PHOSPHOROUS 3.7 mg/dL (2.5-4.9); POTASSIUM - SERUM 4.5 mmol/L (3.5-5.1)
[2018-09-08 00:48] VITALS: BP 146/94
[2018-09-08 04:14] LABS: BASOPHILS 0.2 % (0-2); EOSINOPHILS 0 % (0-7); HEMATOCRIT 36.1 % (36.0-48.0); IMMATURE GRANULOCYTES 3.8 % (0-5); MCH 27.4 pg (26.0-34.0); MCHC 30.5 g/dL (31.0-37.0); MEAN PLATELET VOLUME 9.2 fL (7.4-10.4); PLATELET COUNT 204 10x3/uL (130-400); RBC 4.02 10x6/uL (4.00-5.40); RDW 14.6 % (11.5-14.5); WBC 9.2 10x3/uL (4.8-10.8)
[2018-09-08 04:23] LABS: MCV 89.8 fL (80.0-100.0)
[2018-09-08 04:27] LABS: ANION GAP 10.2 mmol/L (8-16); CALCIUM 8.8 mg/dL (8.5-10.1); CARBON DIOXIDE 29.7 mmol/L (21.0-32.0); CREATININE - SERUM 0.9 mg/dL (0.6-1.3); POTASSIUM - SERUM 4.9 mmol/L (3.5-5.1)
[2018-09-08 05:36] VITALS: BP 143/80
[2018-09-08 07:35] VITALS: BP 134/74
[2018-09-08 11:40] VITALS: BP 147/87
[2018-09-08 14:22] LABS: IMMUNOGLOBULIN E 24 IU/mL (0-100)
[2018-09-08 15:49] VITALS: BP 160/78
[2018-09-08 21:08] LABS: ACID FAST SMEAR Negative (()); AFB SPECIMEN PROCESSING Concentration (())
[2018-09-08 21:36] VITALS: BP 152/82
[2018-09-09 01:42] VITALS: BP 155/84
[2018-09-09 05:11] LABS: BASOPHILS 0.2 % (0-2); EOSINOPHILS 0.2 % (0-7); HEMATOCRIT 35.4 % (36.0-48.0); HEMOGLOBIN 10.8 g/dL (12-16); IMMATURE GRANULOCYTES 4.5 % (0-5); LYMPHOCYTES 8.8 % (15-50); MCHC 30.5 g/dL (31.0-37.0); MCV 88.5 fL (80.0-100.0); MEAN PLATELET VOLUME 8.8 fL (7.4-10.4); MONOCYTES 7.9 % (2-11); NEUTROPHILS 78.4 % (40-80); PLATELET COUNT 199 10x3/uL (130-400); WBC 9.4 10x3/uL (4.8-10.8)
[2018-09-09 05:35] LABS: ALBUMIN 2.4 g/dL (3.4-5.0); ANION GAP 8.4 mmol/L (8-16); BILIRUBIN - TOTAL 0.23 mg/dL (0.2-1.3); CALCIUM 8.6 mg/dL (8.5-10.1); CREATININE - SERUM 0.8 mg/dL (0.6-1.3); POTASSIUM - SERUM 4.4 mmol/L (3.5-5.1); PROTEIN - SERUM 5.6 g/dL (6.4-8.2)
[2018-09-09 06:34] VITALS: BP 143/77
[2018-09-09 07:53] VITALS: BP 156/80
[2018-09-09 10:58] VITALS: BP 146/76
[2018-09-09 16:03] VITALS: BP 136/77
[2018-09-09 20:37] VITALS: BP 158/81
[2018-09-10] VITALS (7 sets, daily range): BP systolic 141–175; BP diastolic 71–93
[2018-09-10 04:47] LABS: BASOPHILS 0.3 % (0-2); EOSINOPHILS 0.3 % (0-7); HEMATOCRIT 40.7 % (36.0-48.0); HEMOGLOBIN 12.9 g/dL (12-16); IMMATURE GRANULOCYTES 5.7 % (0-5); LYMPHOCYTES 7.9 % (15-50); MCHC 31.7 g/dL (31.0-37.0); MCV 88.3 fL (80.0-100.0); MEAN PLATELET VOLUME 8.8 fL (7.4-10.4); MONOCYTES 5.4 % (2-11); NEUTROPHILS 80.4 % (40-80); PLATELET COUNT 218 10x3/uL (130-400); RBC 4.61 10x6/uL (4.00-5.40); WBC 11.6 10x3/uL (4.8-10.8)
[2018-09-10 05:01] LABS: ALBUMIN 2.7 g/dL (3.4-5.0); BILIRUBIN - TOTAL 0.27 mg/dL (0.2-1.3); CALCIUM 8.8 mg/dL (8.5-10.1); CARBON DIOXIDE 29.9 mmol/L (21.0-32.0); CREATININE - SERUM 0.8 mg/dL (0.6-1.3); MAGNESIUM - SERUM 2.2 mg/dL (1.8-2.4); PHOSPHOROUS 4.1 mg/dL (2.5-4.9); POTASSIUM - SERUM 4.9 mmol/L (3.5-5.1); PROTEIN - SERUM 6.3 g/dL (6.4-8.2)
[2018-09-11 01:46] VITALS: BP 140/69
[2018-09-11 05:06] LABS: BASOPHILS 0.3 % (0-2); EOSINOPHILS 1.6 % (0-7); HEMATOCRIT 36.2 % (36.0-48.0); HEMOGLOBIN 11.1 g/dL (12-16); IMMATURE GRANULOCYTES 6.4 % (0-5); LYMPHOCYTES 14.2 % (15-50); MCH 27.1 pg (26.0-34.0); MCHC 30.7 g/dL (31.0-37.0); MCV 88.3 fL (80.0-100.0); MEAN PLATELET VOLUME 8.6 fL (7.4-10.4); MONOCYTES 7.8 % (2-11); NEUTROPHILS 69.7 % (40-80); PLATELET COUNT 199 10x3/uL (130-400); RDW 14.3 % (11.5-14.5); WBC 10.3 10x3/uL (4.8-10.8)
[2018-09-11 05:21] LABS: ANION GAP 7.3 mmol/L (8-16); CALCIUM 7.9 mg/dL (8.5-10.1); CREATININE - SERUM 0.9 mg/dL (0.6-1.3); POTASSIUM - SERUM 4.3 mmol/L (3.5-5.1)
[2018-09-11 06:45] VITALS: BP 157/79
[2018-09-11] MEDS ORDERED: DIFLUCAN100 MG PO (06:48)
[2018-09-11] MEDS ORDERED: OMNICEF300 MG PO (06:49)
[2018-09-11] MEDS ORDERED: STERAPRED DS 1210 MG PO (06:49)
[2018-09-11 08:42] VITALS: BP 145/73
[2018-09-11 11:14] LABS: FUNGUS STAIN Final report (())
[2018-09-12 15:24] LABS: FUNGUS CULTURE RESULT 1 Candida albicans (())
[2018-10-05 15:27] LABS: FUNGUS MYCOLOGY CULTURE Final report (())
== END 2018-09-11 11:34 | disposition home or self-care (01) | DRG 178 ==
LOC: D.ER 11:30 → D.M2 13:54
PROVIDERS: Emergency Medicine; Family Medicine; Internal Medicine Pulmonary Disease
PROC: 0B938ZZ Drainage of Right Main Bronchus, Via Natural or Artificial Opening Endoscopic (ICD-10-PCS; 2018-09-07)
PROC: 0B978ZZ Drainage of Left Main Bronchus, Via Natural or Artificial Opening Endoscopic (ICD-10-PCS; principal; 2018-09-07 10:45)
DX: J69.0 Pneumonitis due to inhalation of food and vomit (principal); J44.0 Chronic obstructive pulmonary disease with (acute) lower respiratory infection; J44.1 Chronic obstructive pulmonary disease with (acute) exacerbation; I13.0 Hypertensive heart and chronic kidney disease with heart failure and stage 1 through stage 4 chronic kidney disease, or unspecified chronic kidney disease; I50.22 Chronic systolic (congestive) heart failure; I42.9 Cardiomyopathy, unspecified; J30.9 Allergic rhinitis, unspecified; N18.9 Chronic kidney disease, unspecified; M81.0 Age-related osteoporosis without current pathological fracture; M19.90 Unspecified osteoarthritis, unspecified site; D63.1 Anemia in chronic kidney disease; M35.9 Systemic involvement of connective tissue, unspecified; M32.9 Systemic lupus erythematosus, unspecified; E86.0 Dehydration; Z86.73 Personal history of transient ischemic attack (TIA), and cerebral infarction without residual deficits; D64.9 Anemia, unspecified

== ENCOUNTER → 2018-10-02 15:50 | Outpatient (CLI) | payer MEDICARE, BC ==
[2018-09-05 18:39] VITALS: BMI 24.3
[~2018-10-02 15:50] MED LIST changes: +DIFLUCAN100 MG PO; +MAG-OXIDE400 MG PO
== END | disposition home or self-care (01) ==
LOC: D.US 15:30
DX: R60.0 Localized edema (principal)

== ENCOUNTER 2018-10-30 19:42 | Inpatient (IN) | payer MEDICARE, BC ==
[~2018-10-30] VITALS: Ht 162.6 cm; Wt 59.8 kg
--- NOTE | ~2018-10-30 | EC ---
PATIENT:PACO QUISPE DATE OF SERVICE: 10/31/18 SEX: F MEDICAL RECORD: [id number] DATE OF : [birth year] LOCATION:D.M2 D.212 AGE OF PATIENT: 83 ADMISSION DATE: 10/31/18 REFERRING PHYSICIAN: INTERPRETING PHYSICIAN: DENZEL GONZALEZ MD ECHOCARDIOGRAM REPORT ECHO CHARGES 4 ECHO COMPLETE Date: 11/06/18 CLINICAL DIAGNOSIS: CHF ECHOCARDIOGRAPHIC MEASUREMENTS (adult normal given) AC root (d.<3.7cm) 2.9 cm LV Septum d (<1.2 cm> 1.0 cm Valve Excursion 1.0 cm LV Septum (systole) 1.1 cm Left Atria (s.<4.0cm> 3.4 cm LVPW d(<1.2cm) 0.9 cm RV (d.<2.3cm) 2.4 cm LVPW (sytole) 1.0 cm LV diastole(<5.6CM) 4.8 cm MV E-F(>70mm/sec) cm LV systole 4.2 cm LVOT Diameter 1.7 cm MV exc.(>10mm) cm Est.ejection fraction (50-75%) % DOPPLER: LVIT cm/sec A 79 cm/sec E 56 cm/sec LA cm/sec RVSP 21.4 mmHg LVOT 120 cm/sec AOP1/2T m/s Asc. Ao 153 cm/sec RVOT 52 cm/sec RA cm/sec PA 64 cm/sec AV Gradient Peak 9.3 mmHg AV Mean 3.5 mmHg AV Area 1.8 cm MV Gradient Peak 3.4 mmHg MV Mean 2.5 mmHg MV Area cm COMMENTS: Hay Buckler: Serg NEW Drawing Box Tender: 1 Dr. Gonzalez TAPE# PACS Pericardial Effusion N DATE OF SERVICE: 11/06/2018 FINDINGS: 1. Left ventricular chamber size is within normal limits. Left ventricular systolic function is normal. Overall ejection fraction estimated at 50%. 2. Left atrium, right atrium, and right ventricle chamber sizes are within normal limits. 3. Valvular structures have normal structure and motion. 4. Doppler interrogation reveals mild mitral regurgitation, trace tricuspid regurgitation, no other valvular insufficiency or stenosis. Pulmonary systolic ECHOCARDIOGRAM REPORT [id number] PACO QUISPE pressure is estimated at 21 mmHg. 5. No evidence of pericardial effusion or left ventricular thrombus. TRANSINT:[id number] Voice Confirmation ID: [id number] DOCUMENT ID: [id number] DENZEL GONZALEZ MD CC: [id number] DICTATION DATE: 11/06/[address] JUDGE: 11/06/18 2338 ADM IN [facility] [address] [id number]
[2018-10-30 20:53] LABS: HEMATOCRIT 30.8 % (36.0-48.0); HEMOGLOBIN 9.6 g/dL (12-16); MCH 27.4 pg (26.0-34.0); MCHC 31.2 g/dL (31.0-37.0); MEAN PLATELET VOLUME 9.1 fL (7.4-10.4); PLATELET COUNT 217 10x3/uL (130-400); RDW 17.4 % (11.5-14.5); WBC 21.6 10x3/uL (4.8-10.8)
[2018-10-30 21:05] LABS: ALBUMIN 2.4 g/dL (3.4-5.0); ALKALINE PHOSPHATASE 92 U/L (46-116); ALT (SGPT) 52 U/L (10-68); BILIRUBIN - TOTAL 0.58 mg/dL (0.2-1.3); CALC OSMOLALITY 281 mosm/kg (275-300); CALCIUM 8.4 mg/dL (8.5-10.1); CHLORIDE - SERUM 99 mmol/L (98-107); CREATININE - SERUM 1.3 mg/dL (0.6-1.3); POTASSIUM - SERUM 3.3 mmol/L (3.5-5.1); PROTEIN - SERUM 6.6 g/dL (6.4-8.2); SODIUM 138 mmol/L (136-145); UREA NITROGEN 22 mg/dL (7-18); eGFR NON AFRICAN AMERICAN 42 mL/min (90-120)
[2018-10-30 21:06] LABS: GLUCOSE 150 mg/dL (74-106)
[2018-10-30 21:08] LABS: EOSINOPHILS 3 % (0-7); LYMPHOCYTES 11 % (15-50); MONOCYTES 3 % (2-11); NEUTROPHILS 83 % (40-80); PLATELET ESTIMATE NORMAL
[2018-10-30 21:16] LABS: CKMB 0.9 U/L (0.0-3.6); CREATINE KINASE 184 UL (21-215); TROPONIN-I < 0.017 ng/mL (0.000-0.060)
[2018-10-30 22:06] VITALS: BP 133/86
[2018-10-30 23:06] VITALS: BP 132/87
[2018-10-31 00:39] LABS: APPEARANCE CLEAR (CLEAR); BILIRUBIN NEGATIVE (NEGATIVE); COLOR YELLOW (YELLOW); GLUCOSE NEGATIVE (NEGATIVE); KETONE NEGATIVE (NEGATIVE); NITRITE NEGATIVE (NEGATIVE); PROTEIN 1+ mg/dL (NEGATIVE); UROBILINOGEN NORMAL (NORMAL)
[2018-10-31 00:40] LABS: BACTERIA NONE SEEN /hpf (NONE SEEN); EPITHELIAL CELLS 0-5 /hpf (0-5); RED CELLS - URINE NONE SEEN /hpf (0-5); WHITE CELLS - URINE 0-5 /hpf (0-5)
--- NOTE | 2018-10-31 02:28 | NUR ---
PT RECEIVED TO FLOOR BY BED, REPORT TAKEN FROM SELVIN JACKSON. WILL CONTINUE TO MONITOR.
[2018-10-31 02:39] VITALS: BMI 24.9
--- NOTE | 2018-10-31 03:14 | NUR ---
ADMISSION ASSESSMENT AND HISTORY COMPLETED. PLAN OF CARE INITIATED. IV ABT INFUSING.
--- NOTE | 2018-10-31 04:16 | NUR ---
HOSPITALITY AIDE AT BEDSIDE TO OBTAIN VITALS, CALL LIGHT IN REACH. WILL CONTINUE WITH PLAN OF CARE.
[2018-10-31 04:48] VITALS: BP 130/72
[2018-10-31 05:10] LABS: BASOPHILS 0.1 % (0-2); EOSINOPHILS 0 % (0-7); HEMATOCRIT 28.7 % (36.0-48.0); IMMATURE GRANULOCYTES 0.5 % (0-5); LYMPHOCYTES 4.5 % (15-50); MCH 27.8 pg (26.0-34.0); MCHC 31.4 g/dL (31.0-37.0); MCV 88.6 fL (80.0-100.0); MONOCYTES 1.8 % (2-11); NEUTROPHILS 93.1 % (40-80); PLATELET COUNT 198 10x3/uL (130-400); RBC 3.24 10x6/uL (4.00-5.40); RDW 17.5 % (11.5-14.5); WBC 19.9 10x3/uL (4.8-10.8)
[2018-10-31 05:49] LABS: ANION GAP 15.3 mmol/L (8-16); CALCIUM 7.7 mg/dL (8.5-10.1); CARBON DIOXIDE 26.3 mmol/L (21.0-32.0); CREATININE - SERUM 1.3 mg/dL (0.6-1.3); MAGNESIUM - SERUM 1.9 mg/dL (1.8-2.4); POTASSIUM - SERUM 3.6 mmol/L (3.5-5.1)
--- NOTE | 2018-10-31 06:28 | NUR ---
PT RESTING COMFORTABLY IN BED WITH EYES CLOSED, RR EVEN AND UNLABORED. BED IN LOW POSITION. SIDE RAILS UP X2. CALL LIGHT IN REACH. WILL CONTINUE TO MONITOR.
--- NOTE | 2018-10-31 08:00 | NUR ---
AM ROUNDS COMPLETED, PT AAO X4, VSS, RR UNLABORED, PT IV INFILTRATED. REMOVED IV AND APPLIED 2X2 WITH TAPE. STARTED NEW IV 22G ON RT HAND. PT TOLERATE WELL. IV POTASSIUM INFUSING PER ELECTROLYTE PROTOCOL. PT DENIES NEED FOR PAIN. CL IN REACH, BED IN LOWEST POSTION, WILL CONTINUE TO MONITOR PT.
[2018-10-31 08:25] VITALS: BP 131/75
--- NOTE | 2018-10-31 10:49 | NUR ---
PAGE INTO DR SALGADO EXPLOSIVES TRUCK DRIVER FOR DR CRAMER. NEW ORDERS RECEIVED.
--- NOTE | 2018-10-31 11:00 | NUR ---
PT STATES SHE IS SOB, NOTIFY PRIMARY. PUT IN A NOTE FOR RESP. CONSULT. CL IN REACH BED IN LOW. WILL CONTINUE TO MONITOR PT RESPIRATORY STATUS.
[2018-10-31 12:13] VITALS: BP 139/78
--- NOTE | 2018-10-31 14:45 | NUR ---
PT RECIEVED BREATHING TREATMENT. PT STATES SHE CAN BREATH BETTER NOW. RR 22. WILL CONTINUE TO MONITOR PT.
[2018-10-31 16:00] VITALS: BP 140/75
--- NOTE | 2018-10-31 16:00 | HP ---
PATIENT: PACO QUISPE MEDICAL RECORD: [id number] ACCOUNT: [id number] LOCATION:[address] : [birth year] ADMISSION DATE: 10/31/18 PCP: MATTY CRAMER DO HISTORY AND PHYSICAL EXAMINATION HISTORY OF PRESENT ILLNESS: An 83-year-old female presented to the Emergency Room late last night, fever and chills, worsening shortness of breath, history of COPD, is on immunosuppressants for polyarthralgia, has had a bronchoscopy last month, which showed fungal organisms. ALLERGIES: LISTED CODEINE, PENICILLIN, MORPHINE, ERYTHROMYCIN, IODINE CONTRAST, ACCOLATE, SULFA DRUGS, ERYTHROMYCIN, HYDROCODONE, MEPERIDINE, HYDROMORPHONE, AND LEVAQUIN. MEDICATIONS: As listed per med rec, history significant as above. REVIEW OF SYSTEMS: GENERAL: No acute change in weight or appetite. HEENT: No cephalgia, visual changes, tinnitus, epistaxis, or dysphagia. CARDIOVASCULAR: Denies chest pain. Denies palpitations. PULMONARY: Admits episodically productive cough, fever and chills, worsening over the past week. GASTROINTESTINAL: Denies hematemesis, hematochezia, or melena. GENITOURINARY: Denies dysuria. MUSCULOSKELETAL: No acute changes. History of polyarthralgia. ENDOCRINE: Denies polyuria, polydipsia, or polyphagia. SOCIAL HISTORY: No history of tobacco or alcohol. No illicit drug use. PHYSICAL EXAMINATION: VITAL SIGNS: Temperature on admission 100.9, blood pressure is 147/73, heart rate 136 on admission, presently in the low 90s, O2 sats 92% on room air. HEENT: Head is normocephalic, atraumatic. Eyes: Pupils are equally round and reactive to light and accommodation. Extraocular muscles are intact. Conjunctivae not injected. Ears: Canals patent, TMs are intact. Nose: Nares patent without drainage. Throat: No erythema, no exudates. NECK: Supple. No lymphadenopathy, no JVD. HEART: Regular rate and rhythm. No S3, S4, no rub. LUNGS: Coarse rhonchi on the right. Breathing is presently nonlabored. ABDOMEN: Soft, nontender. Bowel sounds in all 4 quadrants. EXTREMITIES: Present times 4. NEUROLOGIC: Intact. LABORATORY DATA: CBC: White count 19,900, hemoglobin 9.0, hematocrit 28.7, platelets 198, neutrophils 93%. Chemistry shows a sodium of 141, potassium 3.6, chloride 103, bicarbonate 26.3, BUN 23, creatinine 1.3, magnesium 1.9. Urinalysis: Yellow, clear, essentially normal UA. Chest x-ray: No acute findings. CT of the chest, PE protocol, moderate cardiomegaly, dependent atelectasis. ASSESSMENT AND PLAN: 1. Clinical pneumonia with leukocytosis, productive cough, fever and chills, shortness of breath with a history of fungal pneumonia. Empiric antibiotics as well as antifungal. Pulmonology consulted. 2. Polyarthralgia, we will hold nonsteroidal anti-inflammatory drugs. HISTORY AND PHYSICAL [id number] PACO QUISPE 3. Anemia. Monitor. 4. History of atrial fibrillation, continue digoxin. Check digoxin level with next lab draw. Supportive care. Sputum culture pending with LAURO, Gram stain. TRANSINT:[id number] Voice Confirmation ID: [id number] DOCUMENT ID: [id number] DIPAK MARTINEZ DO at 1600 CC: [id number] DICTATION DATE: 10/31/18 1304 K[employer] SALES REPRESENTATIVE: 10/31/18 1342 ADM IN [facility] [address] [place] [address]
--- NOTE | 2018-10-31 16:06 | NUR ---
PATIENT DENIES NEEDS AT THIS TIME. WILL CONTINUE TO MONITOR AND ASSESS FOR NEEDS.
--- NOTE | 2018-10-31 17:51 | NUR ---
VISITING WITH FAMILY AT THIS TIME. DENIES NEEDS. STATES A FAMILY MEMBER IS BRINGING HER A "REAL [employer] DINNER OF TURKEY AND DRESSING".
--- NOTE | 2018-10-31 19:22 | NUR ---
ASSESSMENT COMPLETE. PT A&O. RESPERATONS EVEN AND UNLABORED ON O2 AT 2 LITERS VIA NC. IV TO LEFT WRIST WITH NS WITH 20 OF K INFUSING AT 100 CC/HR. PT DENIES PAIN OR NEEDS, BED LOW, CL IN REACH.
[2018-10-31 20:25] VITALS: BP 146/83
--- NOTE | 2018-10-31 22:33 | NUR ---
TYLENOL 650 MG GIVEN FOR C/O PAIN TO BACK, SHOULDERS AND KNEES. RATES PAIN AT A 9 ON PAIN SCALE.
[2018-11-01] VITALS: BP 153/85
--- NOTE | 2018-11-01 00:18 | NUR ---
PHENERGAN TAB GIVEN FOR C/O NAUSEA.
[2018-11-01] MEDS ORDERED: XANAX0.25 MG PO (00:21)
--- NOTE | 2018-11-01 01:06 | NUR ---
PT ASKING FOR DUONEB UPDRAFT, NO PRNS ORDERED, CALL OUT TO DR SALOMON.
[2018-11-01 04:00] VITALS: BP 144/90
[2018-11-01 04:50] LABS: BASOPHILS 0.1 % (0-2); EOSINOPHILS 0 % (0-7); HEMATOCRIT 27.2 % (36.0-48.0); HEMOGLOBIN 8.3 g/dL (12-16); IMMATURE GRANULOCYTES 0.5 % (0-5); LYMPHOCYTES 5.2 % (15-50); MCH 26.9 pg (26.0-34.0); MCHC 30.5 g/dL (31.0-37.0); MCV 88.3 fL (80.0-100.0); MEAN PLATELET VOLUME 8.6 fL (7.4-10.4); MONOCYTES 3.3 % (2-11); NEUTROPHILS 90.9 % (40-80); PLATELET COUNT 204 10x3/uL (130-400); RBC 3.08 10x6/uL (4.00-5.40); RDW 17.5 % (11.5-14.5)
[2018-11-01 05:16] LABS: ANION GAP 13.4 mmol/L (8-16); CALCIUM 7.1 mg/dL (8.5-10.1); CARBON DIOXIDE 26.3 mmol/L (21.0-32.0); CREATININE - SERUM 1.1 mg/dL (0.6-1.3); DIGOXIN 0.73 ng/mL (0.90-2.00); MAGNESIUM - SERUM 2.2 mg/dL (1.8-2.4); POTASSIUM - SERUM 3.7 mmol/L (3.5-5.1)
--- NOTE | 2018-11-01 07:15 | NUR ---
REPORT RECIEVED FROM NIGHT NURSE. PATIENT SITTING UP IN BED DOING CROSS WORD PUZZLES. PATIENT DENIES ANY NEEDS OR PAIN. WILL CONTINUE WITH PLAN OF CARE.
[2018-11-01 08:19] VITALS: BP 143/88
--- NOTE | 2018-11-01 10:03 | NUR ---
UP SOB WITH CALL LIGHT IN REACH. RESP UL ON . IV PATENT. WILL CONT. TO MONITOR NEEDS.
--- NOTE | 2018-11-01 10:15 | NUR ---
PATIENT SITTING UP IN BED WATCHING TV. PATIENT IS STABLE AND UNCHANGED.
[2018-11-01 12:25] VITALS: BP 136/78
[2018-11-01 13:29] VITALS: BMI 39.7
--- NOTE | 2018-11-01 13:45 | NUR ---
PATIENT RESTING IN BED VISITING WITH FAMILY. DENIES ANY NEEDS OR PAIN. WILL CONTINUE TO MONITOR.
[2018-11-01 16:05] VITALS: BP 136/73
--- NOTE | 2018-11-01 16:30 | NUR ---
CALLED TO PATIENTS ROOM. PATIENT COMPLAINS OF GENERALIZED PAIN REQUEST MOTRIN. RX GIVEN PER MED ORDER. SR UP X 2 BED IN LOW POSITON AND CALL LIGHT IN REACH.
[2018-11-01 20:27] VITALS: BP 146/75
[2018-11-02 02:01] VITALS: BP 135/88
[2018-11-02 04:01] LABS: BASOPHILS 0.1 % (0-2); EOSINOPHILS 0 % (0-7); HEMOGLOBIN 8.3 g/dL (12-16); IMMATURE GRANULOCYTES 1.4 % (0-5); LYMPHOCYTES 7.3 % (15-50); MCH 27.6 pg (26.0-34.0); MCHC 30.7 g/dL (31.0-37.0); MCV 89.7 fL (80.0-100.0); MEAN PLATELET VOLUME 8.8 fL (7.4-10.4); MONOCYTES 6.4 % (2-11); NEUTROPHILS 84.8 % (40-80); PLATELET COUNT 240 10x3/uL (130-400); RBC 3.01 10x6/uL (4.00-5.40); RDW 18.1 % (11.5-14.5); WBC 14.1 10x3/uL (4.8-10.8)
[2018-11-02 04:26] LABS: ALBUMIN 2.2 g/dL (3.4-5.0); ANION GAP 13.4 mmol/L (8-16); BILIRUBIN - TOTAL 0.24 mg/dL (0.2-1.3); CARBON DIOXIDE 24.6 mmol/L (21.0-32.0); MAGNESIUM - SERUM 2.1 mg/dL (1.8-2.4); PROTEIN - SERUM 5.8 g/dL (6.4-8.2)
[2018-11-02 04:43] LABS: CALCIUM 6.8 mg/dL (8.5-10.1); PHOSPHOROUS 2.2 mg/dL (2.5-4.9)
--- NOTE | 2018-11-02 05:03 | NUR ---
PT HAS A CALCIUM OF 6.8 AND A PHOS OF 2.2, DUE TO CRITICAL VALUE, PER NURSE SPECIAL NURSE IN CHARGE OF PT CALLED RENT AND HOUSING INVESTIGATOR DR WALKER AND REPORTED PT CONDITION. HE STATED IT CAN WAIT UNTIL DR CRAMER COMES IN THIS MORNING.
--- NOTE | 2018-11-02 05:04 | NUR ---
CRITICAL LAB CALCIUM 6.8 WAS REPORTED. DIRECTOR [facility] DOCTOR FOR DR. CRAMER WAS CALLED. SPOKE TO DR. ROSS AND WAS TOLD TO LET ADDRESS WHEN HE MAKES ROUNDS TODAY.
[2018-11-02 05:42] VITALS: BP 127/77
--- NOTE | 2018-11-02 07:10 | NUR ---
PATIENT LAYING IN BED AWAKE AND ALERT. PATIENT SOB WITH CONVERSATION. O2 SAT 97%. O2PER NC AT 2L. VITAL SIGNS GOOD. WILL CONTINUE TO MONITOR CLOSELY.
[2018-11-02 08:02] VITALS: BP 132/76
--- NOTE | 2018-11-02 08:32 | NUR ---
RESP UL ON . IV PATENT. NURSE AT ASSISTING WITH NEEDS.
--- NOTE | 2018-11-02 10:30 | NUR ---
PATIENT SITTING UP IN BED WATCHING TV. PATIENT DENIES ANY NEEDS OR PAIN,. WILL CONTINUE WITH PLAN OF CARE.
[2018-11-02 10:49] VITALS: BP 136/74
--- NOTE | 2018-11-02 14:20 | NUR ---
PATIENT UP TO BR WITH ASSISTANCE. PATIENT SOB . O2 SAT 98% O2 PER NC AT 2L. BACK TO BED. WILL CONTINUE TO MONITOR.
--- NOTE | 2018-11-02 15:07 | CN ---
PATIENT NAME:PACO BERNAL MEDICAL RECORD: [id number] : 39 LOCATION:D.M2 D.2127 ADMIT DATE: 10/31/18 ACCOUNT: [id number] CONSULTING PHYSICIAN: GAIL ROMERO MD REFERRING PHYSICIAN: MATTY CRAMER DO DATE OF CONSULTATION: 10/31/2018 CONSULT REQUESTING PHYSICIAN: Skinny Gutierrez DO REASON FOR CONSULTATION: Acute exacerbation of chronic obstructive pulmonary disease, fever, coughing and leukocytosis. HISTORY OF PRESENT ILLNESS: Ms. Bernal is an 83-year-old female who is sick since yesterday, but according to the patient, she did not get over since her last hospitalization. She is coughing. She is wheezing. She has shortness of breath. She is feeling very weak and she has a fever above 100 and came into the ER for further evaluation. REVIEW OF SYSTEMS: As in history of present illness. PAST MEDICAL HISTORY: 1. COPD. 2. History of CVA. 3. Allergic rhinitis. 4. Sinusitis. 5. Hypertension. 6. Asthma. 7. Osteoarthritis and polyarthritis. 8. History of asthma. PAST SURGICAL HISTORY: 1. Appendectomy. 2. Hysterectomy. 3. Cataract. 4. Hernia repair. 5. Left kyphoplasty L1. ALLERGIES: SHE IS ALLERGIC TO MANY MEDICATIONS; CODEINE, PENICILLIN, MORPHINE, ERYTHROMYCIN, IV CONTRAST, MACROLIDES, SULFA, HYDROCODONE, HYDROMORPHONE, LEVAQUIN. MEDICATIONS: She is on meropenem IV. Her other medication is reviewed. PERSONAL AND SOCIAL HISTORY: The patient is a retired nurse. She is nonsmoker, nondrinker. FAMILY HISTORY: Noncontributory. PHYSICAL EXAMINATION: GENERAL: Now, the patient is lying comfortably in bed. She is not in acute distress. VITAL SIGNS: The blood pressure 139/78, pulse is 90, respiration 18, temperature is 97.7, SpO2 of 97% on 2 liters nasal cannula. HEENT: Conjunctivae are pink. The sclera is not icteric. NECK: Neck is supple, no JVD. CONSULT REPORT [id number] PACO BERNAL CHEST: There is prolonged expiration with wheezing. There are bibasilar crackles. HEART: Rhythm regular, normal sound, no murmur. ABDOMEN: Abdomen is soft, bowel sounds present. No hepatosplenomegaly. RECTAL: Deferred. EXTREMITIES: No cyanosis, no clubbing, no pedal edema. CENTRAL NERVOUS SYSTEM: The patient is awake and alert. There is no obvious cranial nerve abnormality. The gait was not tested. IMAGING: CTA of the chest, no PE. There is dependent atelectasis. There is moderate cardiomegaly. There is a 4 mm nodule in the right lower lobe. LABORATORY DATA: CBC: The WBC is 21.6, hemoglobin 9.6, hematocrit 30.8, the platelet count 217. Chemistry: Sodium 138, potassium is 3.3, BUN is 22, creatinine 1.3. IMPRESSION: 1. Acute hypoxic respiratory failure. 2. Acute exacerbation of chronic obstructive pulmonary disease. 3. Acute tracheobronchitis. 4. Leukocytosis. 5. Hypokalemia. 6. Acute cough. 7. Polyarthralgia. 8. Pulmonary nodule. RECOMMENDATION: 1. Continue meropenem. The patient has Enterobacter on previous bronchoscopy. 2. Albuterol and ipratropium nebulizer. Start Brovana and budesonide nebulizer. Start methylprednisolone IV. 3. Follow labs and chest radiograph. Dr. Gutierrez, thank you for involving me in the care of Ms. Bernal. TRANSINT:[id number] Voice Confirmation ID: [id number] DOCUMENT ID: [id number] GAIL ROMERO MD at 1507 CC: [id number] DICTATION DATE: 10/31/18 1602 CENTRAL SUPPLY AIDE: 10/31/18 1646 ADM IN [address] [place] [address]
[2018-11-02 15:42] VITALS: BP 31/74
--- NOTE | 2018-11-02 18:00 | NUR ---
PATIENT SOB. EXPIRATORY WHEEZE VIPUL. O2 SAT 97%. IV FLUID REDUCED TO 50 ML/HR.
[2018-11-02 20:00] VITALS: BP 166/82
--- NOTE | 2018-11-02 21:22 | NUR ---
HEALTH EDITOR AT BED SIDE TO OBTAIN PTS WT. PTS WT IS 158, PT INSISTS THAT THE PHYSICIAN BE CALLED BECAUSE SHE STATES THAT SHE HAS GAINED 8 POUNDS IN ONE DAY, HOWEVER PTS RECORDED WT FOR YESTERDAY IS 155 LBS. IV FLUIDS STOPPED AT THIS TIME. PT DOES HAVE AUDIBLE CRACKLES THROUGH OUT LUNGS. PAGE OUT TO DR CRAMER.
--- NOTE | 2018-11-02 21:46 | NUR ---
NO RETURN CALL FROM DR CRAMER YET, PT INSISTANT THAT I CALL PULMONARY. PAGE OUT TO DR ROMERO.
--- NOTE | 2018-11-02 21:48 | NUR ---
CALL RECIEVED FROM DR ROMERO, DR ROMERO INSTRUCTED ME TO CALL BACK THE PRIMARY PHYSICIAN TO ASK FOR LASIX.
--- NOTE | 2018-11-02 21:51 | NUR ---
SECOND PAGE OUT TO DR CRAMER.
--- NOTE | 2018-11-02 21:53 | NUR ---
SPOKE WITH DR CRAMER, ORDERS GIVEN TO ADMINISTER LASIX 80 MG NOW.
[2018-11-03] VITALS: BP 154/80
--- NOTE | 2018-11-03 01:38 | NUR ---
RN NOTE. PATIENT APPEARS TO BE SLEEPING. RESPIRATIONS ARE EVEN AND UNLABORED. NO S/S OF DISTRESS. CALL LIGHT WITHIN REACH WILL CPOC.
--- NOTE | 2018-11-03 04:07 | NUR ---
IBUPROPHEN 600 MG TAB GIVEN AT PT REQUEST.
--- NOTE | 2018-11-03 04:41 | NUR ---
RT AT BED SIDE TO ADMINISTER UPDRAFT.
[2018-11-03 05:23] VITALS: BP 139/79
[2018-11-03 06:51] LABS: BASOPHILS 0.2 % (0-2); EOSINOPHILS 0 % (0-7); HEMATOCRIT 27.8 % (36.0-48.0); HEMOGLOBIN 8.5 g/dL (12-16); IMMATURE GRANULOCYTES 4.5 % (0-5); LYMPHOCYTES 9.4 % (15-50); MCH 27.5 pg (26.0-34.0); MCHC 30.6 g/dL (31.0-37.0); MEAN PLATELET VOLUME 9.1 fL (7.4-10.4); MONOCYTES 6.3 % (2-11); NEUTROPHILS 79.6 % (40-80); PLATELET COUNT 260 10x3/uL (130-400); RBC 3.09 10x6/uL (4.00-5.40); WBC 11.2 10x3/uL (4.8-10.8)
[2018-11-03 06:55] LABS: ALBUMIN 2.4 g/dL (3.4-5.0); ANION GAP 14.9 mmol/L (8-16); BILIRUBIN - TOTAL 0.22 mg/dL (0.2-1.3); CARBON DIOXIDE 27.1 mmol/L (21.0-32.0); PHOSPHOROUS 2.2 mg/dL (2.5-4.9); PROTEIN - SERUM 5.8 g/dL (6.4-8.2)
--- NOTE | 2018-11-03 07:36 | NUR ---
RIGHT FA SWOLLEN, IV INFILTRATED. DC'D WITH CATH INTACT.
[2018-11-03 08:33] VITALS: BP 150/77
--- NOTE | 2018-11-03 08:55 | NUR ---
LEFT HAND 20G IV INSERTED ON X3 ATTEMPT.
--- NOTE | 2018-11-03 09:29 | NUR ---
PT UP WALKING WITH WALKER WITH P.T.
--- NOTE | 2018-11-03 09:31 | NUR ---
UP AMBULATING HALLWAY WITH PT ASSIST.
--- NOTE | 2018-11-03 10:24 | NUR ---
PT WANTING DULCOLAX PRN AND STOOL SOFTNER PRN. SPOKE WITH DR. CRAMER AND HE STATED THAT'S FINE.
--- NOTE | 2018-11-03 11:45 | NUR ---
Rehab Prescreening Consult recieved and the patient has been visited. She does not feel she needs to come to ARU at discharge. She has a lot of family support and plans to return home with HH if needed. She was provided with a book from the ARU and told to contact us if she changes her mind. Discussed with the CM Lisseth Vargas RN. Delmy Ayers RN Clinical Liaison, Rehab
[2018-11-03 12:05] VITALS: BP 171/84
--- NOTE | 2018-11-03 12:16 | NUR ---
Nutrition follow-up: Diet: Regular PO intake 75-100% of meals labs reviewed Wt: 158# +BM past stool softener. RDN following.
[2018-11-03 13:03] VITALS: Ht 162.6 cm; Wt 59.8 kg
[2018-11-03 15:52] VITALS: BP 173/88
--- NOTE | 2018-11-03 16:10 | NUR ---
PT IN THE SHOWER.
--- NOTE | 2018-11-03 16:50 | MORECARE ---
CASE MANAGEMENT DISCHARGE SUMMARY PATIENT: PACO QUISPE UNIT: [id number] ADM DATE: 10/31/18 AGE: 83 : 37 SEX: F ROOM/BED: D.9320 AUTHOR: JACKELYN FERRER PHYSICIAN: REFERRING PHYSICIAN: MATTY CRAMER DO DATE OF SERVICE: 11/03/18 Discharge Plan Patient Name: PACO QUISPE Facility: [facility]:[place] : 1935 Planned Disposition: Home Anticipated Discharge Date: 11/04/18 Discharge Date: Expected LOS: 4 Initial Reviewer: [email or web address] Initial Review Date: 11/03/2018 Generated: 11/03/18 5:50 pm Comments DCP- Discharge Planning Updated by [email or web address]: Jeffy Richter on 11/03/18 3:[address] Patient Name: PACO QUISPE Admission Status: ER Accout number: [id number] Admission Date: 10-31-2018 : 1935 Admission Diagnosis:PNEUMONIA, UNSPECIFIED ORGANISM Attending: Matty Cramer Current LOS: 3 Anticipated DC Date: 11-04-2018 Planned Disposition: Home Primary Insurance: MEDICARE A & B Discharge Planning Comments: CM RECEIVED ORDER FOR INPATIENT REHAB PRESCREENING. NOLAN OF INPATIENT REHAB HAS MET WITH PT TODAY AND PT REFUSED INPATIENT REHAB. CM MET WITH PT IN ROOM TO DISCUSS DISCHARGE PLANNING AND NEEDS. PT REPORTS LIVING AT HOME INDEPENDENTLY AND ALONE. PT HAS CANE, NEBULIZER, HOME OXYGEN AND ROLLING WALKER FROM [facility]. PT HAS NO OUTSIDE SERVICES ASSISTING IN THE HOME. CM DISCUSSED AVAILABILITY OF HOME HEALTH, REHAB SERVICES AND MEDICAL EQUIPMENT. 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 PT REPORTS HER SON WILL PICK HER UP FOR DISCHARGE HOME. IMPORTANT MESSAGE FROM MEDICARE PROVIDED AND EXPLAINED. PT REFUSED REHAB AND HOME HEALTH SERVICES, PLANS TO DISCHARGE HOME ALONE, FAMILY TO TRANSPORT. CM TO FOLLOW AND ASSIST IF NEEDED. Octave Board Racker: Jeffy Richter DCPIA - Discharge Planning Initial Assessment Updated by [email or web address]: Jeffy Richter on 11/03/18 4:46 pm * Is the patient Alert and Oriented? Yes * How many steps to enter\exit or inside your home? * PCP DR. CRAMER * Pharmacy [facility] [address] * Preadmission Environment Home Alone * ADLs Independent * Equipment Cane Nebulizer Oxygen Rolling Walker * Other Equipment OXYGEN AT NIGHT [place] - OXYGEN PROVIDER * List name and contact numbers for known caregivers / representatives who currently or will assist patient after discharge: HENNA DASH, SON, CYNDI QUISPE, SON, * Verbal permission to speak to the caregivers and representatives has been obtained from the patient. N/A * Community resources currently utilized None * Please name any agencies selected above. NONE * Additional services required to return to the preadmission environment? No * Can the patient safely return to the preadmission environment? Yes * Has this patient been hospitalized within the prior 30 days at any hospital? No Coverage Notice Reviewer: [email or web address] Christiane Richter Notice Issued Date-Time: 11/03/2018 12:10 Notice Type: IM Discharge Notice Notice Delivered To: Patient Relationship to Patient: Conference Reservationist Name: Delivery Method: HAND - Hand Delivered Mee Days: Prior Verbal Notification: Recipient Understood Notice: Yes Recipient Signature: Yes Med Rec Note Co-signed by Attending: Coverage Notice Comment: Patient Name: PACO QUISPE Page [id number] at 1650 All edits/amendments must be made on the electronic document DICTATION DATE: 11/03/18 165 BRAND AMBASSADOR: ANABELLA 11/03/18 165 RPT#: [id number] DC DATE: STATUS: ADM IN [facility] [address] [place] [address] END OF REPORT
--- NOTE | 2018-11-03 17:00 | NUR ---
DR. ACEVES DC'D DOXYCLINE IV AND STARTED PO. SHE STATES DON'T GIVE PT ANY YOGURT OR MILK WITH IT BECAUSE THAT MESSAGE BROKER DEVELOPER HER NAUSEOUS AND TO HAVE HER TRY AND EAT A LITTLE SNACK WITH IT AND IF PT STILL GETS NAUSEAOUS GIVE HER NAUSEA MEDICATION.
--- NOTE | 2018-11-03 17:08 | MORECARE ---
CASE MANAGEMENT DISCHARGE SUMMARY PATIENT: PACO QUISPE UNIT: [id number] ADM DATE: 10/31/18 AGE: 83 : 37 SEX: F ROOM/BED: D.0148 AUTHOR: JACKELYN FERRER PHYSICIAN: REFERRING PHYSICIAN: MATTY CRAMER DO DATE OF SERVICE: 11/03/18 Discharge Plan Patient Name: PACO QUISPE Facility: [facility]:[place] : 1935 Planned Disposition: Home Anticipated Discharge Date: 11/04/18 Discharge Date: Expected LOS: 4 Initial Reviewer: [id number] Initial Review Date: 11/03/2018 Generated: 11/03/18 6:08 pm Comments DCP- Discharge Planning Updated by [id number]: Jeffy Richter on 11/03/18 3:[address] Patient Name: PACO QUISPE Admission Status: ER Accout number: [id number] Admission Date: 10-31-2018 : 1935 Admission Diagnosis:PNEUMONIA, UNSPECIFIED ORGANISM Attending: Matty Cramer Current LOS: 3 Anticipated DC Date: 11-04-2018 Planned Disposition: Home Primary Insurance: MEDICARE A & B Discharge Planning Comments: CM RECEIVED ORDER FOR INPATIENT REHAB PRESCREENING. NOLAN OF INPATIENT REHAB HAS MET WITH PT TODAY AND PT REFUSED INPATIENT REHAB. CM MET WITH PT IN ROOM TO DISCUSS DISCHARGE PLANNING AND NEEDS. PT REPORTS LIVING AT HOME INDEPENDENTLY AND ALONE. PT HAS CANE, NEBULIZER, HOME OXYGEN AND ROLLING WALKER FROM [facility]. PT HAS NO OUTSIDE SERVICES ASSISTING IN THE HOME. CM DISCUSSED AVAILABILITY OF HOME HEALTH, REHAB SERVICES AND MEDICAL EQUIPMENT. 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 PT REPORTS HER SON WILL PICK HER UP FOR DISCHARGE HOME. IMPORTANT MESSAGE FROM MEDICARE PROVIDED AND EXPLAINED. PT REFUSED REHAB AND HOME HEALTH SERVICES, PLANS TO DISCHARGE HOME ALONE, FAMILY TO TRANSPORT. CM TO FOLLOW AND ASSIST IF NEEDED. Casualty Claims Supervisor: Jeffy Richter DCPIA - Discharge Planning Initial Assessment Updated by [email or web address]: Jeffy Richter on 11/03/18 4:46 pm * Is the patient Alert and Oriented? Yes * How many steps to enter\exit or inside your home? * PCP DR. CRAMER * Pharmacy [facility] [address] * Preadmission Environment Home Alone * ADLs Independent * Equipment Cane Nebulizer Oxygen Rolling Walker * Other Equipment OXYGEN AT NIGHT [facility] - OXYGEN PROVIDER * List name and contact numbers for known caregivers / representatives who currently or will assist patient after discharge: HENNA DASH, SON, CYNDI QUISPE, SON, * Verbal permission to speak to the caregivers and representatives has been obtained from the patient. N/A * Community resources currently utilized None * Please name any agencies selected above. NONE * Additional services required to return to the preadmission environment? No * Can the patient safely return to the preadmission environment? Yes * Has this patient been hospitalized within the prior 30 days at any hospital? No Coverage Notice Reviewer: [id number] Christiane Richter Notice Issued Date-Time: 11/03/2018 12:10 Notice Type: IM Discharge Notice Notice Delivered To: Patient Relationship to Patient: Polystyrene Molding Machine Tender Name: Delivery Method: HAND - Hand Delivered Mee Days: Prior Verbal Notification: Recipient Understood Notice: Yes Recipient Signature: Yes Med Rec Note Co-signed by Attending: Coverage Notice Comment: Last DP export: 11/03/18 3:50 Patient Name: PACO QUISPE Page [id number] at 1708 All edits/amendments must be made on the electronic document DICTATION DATE: 11/03/181707 DIRECTOR OF CASEWORK: ANABELLA 11/03/181707 RPT#: [id number] DC DATE: STATUS: ADM [address] [place] [address] END OF REPORT
--- NOTE | 2018-11-03 18:25 | NUR ---
PT WANITNG SOMETHING FOR HEMRRHOIDS. DR. WALKER PAGED.
--- NOTE | 2018-11-03 18:30 | NUR ---
SPOKE WITH DR. WALKER AND HE ORDERED PROCTOFOAM QID.
--- NOTE | 2018-11-03 18:37 | NUR ---
[employer] CALLED AND THEY STATED THEY WILL BRING A LARGE AND XLARGE SCRUB PANTS.
--- NOTE | 2018-11-03 19:05 | NUR ---
ALERT/AWAKE TALKING TO VISITORS. REQUESTED RESP TX. AUSCULTATED WHEEZES IN ALL LUNG TINAJERO. HAS 02 2L/NC ON. IV IN L WRIST INTACT SL. DENIES PAIN. INITIAL ASSESSMENTS STARTED. ORIENTED TO CALL LIGHT FOR ANY NEEDS.
[2018-11-03 20:50] VITALS: BP 158/94
[2018-11-04 01:30] VITALS: BP 149/80
--- NOTE | 2018-11-04 03:05 | NUR ---
RESTING WITH EYES CLOSED. RR EVEN U/L. NO S/S OF DISCOMFORT. HAS CALL LIGHT IN REACH.
[2018-11-04 06:14] VITALS: BP 159/87
--- NOTE | 2018-11-04 07:00 | NUR ---
RECEIVED REPORT. ASSUMED CARE OF PATIENT. PATIENT SITTING TO SIDE OF BED. CALL LIGHT WITHIN REACH. NO DISTRESS. DENIES NEEDS.
[2018-11-04 07:05] LABS: BASOPHILS 0.2 % (0-2); EOSINOPHILS 0 % (0-7); HEMATOCRIT 29.9 % (36.0-48.0); HEMOGLOBIN 9.2 g/dL (12-16); IMMATURE GRANULOCYTES 3.9 % (0-5); LYMPHOCYTES 9.3 % (15-50); MCH 27.7 pg (26.0-34.0); MCHC 30.8 g/dL (31.0-37.0); MCV 90.1 fL (80.0-100.0); MEAN PLATELET VOLUME 9.2 fL (7.4-10.4); MONOCYTES 8.5 % (2-11); NEUTROPHILS 78.1 % (40-80); RBC 3.32 10x6/uL (4.00-5.40); RDW 17.7 % (11.5-14.5); WBC 12.2 10x3/uL (4.8-10.8)
[2018-11-04 07:08] LABS: PLATELET COUNT 324 10x3/uL (130-400)
[2018-11-04 07:45] LABS: ALBUMIN 2.5 g/dL (3.4-5.0); ANION GAP 12.1 mmol/L (8-16); BILIRUBIN - TOTAL 0.24 mg/dL (0.2-1.3); CARBON DIOXIDE 32.8 mmol/L (21.0-32.0); CREATININE - SERUM 0.9 mg/dL (0.6-1.3); DIGOXIN 0.67 ng/mL (0.90-2.00); POTASSIUM - SERUM 3.9 mmol/L (3.5-5.1); PROTEIN - SERUM 6.1 g/dL (6.4-8.2)
[2018-11-04 07:46] LABS: PHOSPHOROUS 3.4 mg/dL (2.5-4.9)
--- NOTE | 2018-11-04 10:15 | NUR ---
PATIENT AMBULATING ON UNIT WITH PHYSICAL THERAPY. NO DISTRESS. TOLERATES THERAPY WELL.
--- NOTE | 2018-11-04 11:59 | NUR ---
RESTING IN BED. MEDICATED FOR BACK PAIN AT THIS TIME. PATIENT MADE AWARE THAT SHE WILL NEED TO GET UP FOR MEALS SHE HAS BEEN DOING. NO DISTRESS. CALL LIGHT WITHIN REACH.
--- NOTE | 2018-11-04 12:26 | NUR ---
OT NOTE: PT IS DOING WELL; PERFORMS ALL BED MOB AND IN ROOM AMBULATION WITH USE OF ROLATOR AND SBA; ABLE TO PERFORM UE AND LE DRESSING WITHOUT ASSIST. CONT TO EXHIBIT MILD SOB DURING FUNCTIONAL TASKS, BUT OVERALL , DOING WELL. DOES NOT WANT TO GO TO IP REHAB. DIEGO XIONG, OTR/L
--- NOTE | 2018-11-04 12:40 | NUR ---
HOT PACK PROVIDED TO HELP ALLEVIATE BACK AND SHOULDER PAIN. NO IDSTRESS.
[2018-11-04 12:41] VITALS: BP 150/74
--- NOTE | 2018-11-04 15:41 | NUR ---
COFFEE PROVIDED UPON REQUEST. RESTING IN BED WITH EYES OPEN. NO DISTRESS. CALL LIGHT WITHIN REACH.
[2018-11-04 16:51] VITALS: BP 161/75
--- NOTE | 2018-11-04 20:16 | NUR ---
INITIAL ROUNDS AND ASSESSMENT COMPLETED. O2 @ 2L/NC RESPS EVEN/MILDLY SOB. RT NOW IN ROOM. PIV TO LEFT WRIST SALINE LOCKED. CURRENTLY VISITING WITH FAMILY IN ROOM. MONITOR AND CPOC.
[2018-11-04 20:30] VITALS: BP 163/87
--- NOTE | 2018-11-04 22:59 | NUR ---
ALL BEDTIME MEDS GIVEN. PT THEN TOOK XANAX TO HELP HER RELAX AND COUGH SYRUP FOR FREQUENT COUGHING EPISODES. PT ADMITS THAT SHE IS VERY TIRED OF BEING IN THE HOSPITAL AND JUST WANTS TO GO HOME. NEW ORDER FOR METANEB PER DR ROMERO NOTED.
[2018-11-05 00:38] VITALS: BP 143/83
--- NOTE | 2018-11-05 02:44 | NUR ---
RESTING IN BED WITH NO DISTRESS. RESPS EVEN/NONLABORED. CALL LIGHT IN REACH. MONITOR AND CPOC.
--- NOTE | 2018-11-05 05:27 | NUR ---
PT C/O HEADACHE. MEDICATED WITH TYLENOL AND AM MEDS ALSO GIVEN AT THIS TIME. WILL MONITOR RESPONSE.
[2018-11-05 05:40] VITALS: BP 142/85
[2018-11-05 06:52] LABS: BASOPHILS 0.2 % (0-2); EOSINOPHILS 0.1 % (0-7); HEMATOCRIT 32.1 % (36.0-48.0); HEMOGLOBIN 9.7 g/dL (12-16); IMMATURE GRANULOCYTES 3.5 % (0-5); LYMPHOCYTES 9.1 % (15-50); MCH 27.5 pg (26.0-34.0); MCHC 30.2 g/dL (31.0-37.0); MCV 90.9 fL (80.0-100.0); MEAN PLATELET VOLUME 9.1 fL (7.4-10.4); MONOCYTES 8.5 % (2-11); NEUTROPHILS 78.6 % (40-80); PLATELET COUNT 348 10x3/uL (130-400); RBC 3.53 10x6/uL (4.00-5.40); RDW 17.5 % (11.5-14.5); WBC 12.2 10x3/uL (4.8-10.8)
--- NOTE | 2018-11-05 07:00 | NUR ---
RECEIVED REPORT. ASSUMED CARE OF PATIENT. CALL LIGHT WITHIN REACH. SITTING IN BED WITH COFFEE. COMPLETED METANEB TX. NO DISTRESS.
[2018-11-05 07:16] LABS: ANION GAP 9.1 mmol/L (8-16); CARBON DIOXIDE 37.5 mmol/L (21.0-32.0); CREATININE - SERUM 0.9 mg/dL (0.6-1.3); POTASSIUM - SERUM 3.6 mmol/L (3.5-5.1)
[2018-11-05 07:20] LABS: CALCIUM 6.9 mg/dL (8.5-10.1)
[2018-11-05 08:31] VITALS: BP 154/84
--- NOTE | 2018-11-05 11:36 | NUR ---
RESTING IN BED. PATIENT COMPLAINS THAT PT HAS NOT WALKED HER TODAY YET. WILL CHECK WITH PT. NO DISTRESS. RESP EVEN AND UNLABORED.
[2018-11-05 12:54] VITALS: BP 155/81
--- NOTE | 2018-11-05 13:30 | NUR ---
RESTING IN BED WITH EYES CLOSED. PATIENT HAS BEEN OOB MOST OF THE MORNING TO CHAIR AT BEDSIDE. CALL LIGHT WITHIN REACH. NO DISTRESS.
--- NOTE | 2018-11-05 15:11 | NUR ---
RESTING IN BED WITH ATTENTION TOWARD TELEVISION. COFFEE PROVIDED UPON REQUEST. NO DISTRESS. CALL LIGHT WITHIN REACH.
[2018-11-05 16:42] VITALS: BP 166/90
--- NOTE | 2018-11-05 19:30 | NUR ---
REPORT RECEIVED. PT SITTING UP IN BED WITH EYES OPEN, RR EVEN AND UNLABORED. OXYGEN AT 2 LITERS BY NASAL CANNULA. SON AT BEDSIDE. BED IN LOW POSITION. CALL LIGHT IN REACH. WILL CONTINUE TO MONITOR.
[2018-11-05 20:53] VITALS: BP 148/87
[2018-11-06 00:45] VITALS: BP 149/93
--- NOTE | 2018-11-06 02:09 | NUR ---
RESTING IN BED WITH NO DISTRESS. RESPS EVEN/NONLABORED. NO DISTRESS. MONITOR AND CPOC.
--- NOTE | 2018-11-06 02:53 | NUR ---
PT SITTING UP IN BED WITH EYES OPEN, REQUESTED BREATHING TREATMENT. PT STATES HAVING AN EPISODE OF COUGHING. INSTRUCTED PT TO TAKE A FEW DEEP, SLOW BREATHS. CALLED RESPIRATORY. NO S/S OF DISTRESS. BED IN LOW POSITION. CALL LIGHT IN REACH. WILL CONTINUE TO MONITOR.
[2018-11-06 04:25] VITALS: BP 140/71
[2018-11-06 04:43] LABS: BASOPHILS 0.1 % (0-2); EOSINOPHILS 0.2 % (0-7); HEMATOCRIT 32.7 % (36.0-48.0); HEMOGLOBIN 9.9 g/dL (12-16); IMMATURE GRANULOCYTES 2.5 % (0-5); LYMPHOCYTES 6.5 % (15-50); MCH 27.6 pg (26.0-34.0); MCHC 30.3 g/dL (31.0-37.0); MCV 91.1 fL (80.0-100.0); MEAN PLATELET VOLUME 9.1 fL (7.4-10.4); MONOCYTES 3.3 % (2-11); NEUTROPHILS 87.4 % (40-80); PLATELET COUNT 355 10x3/uL (130-400); RBC 3.59 10x6/uL (4.00-5.40); RDW 17.5 % (11.5-14.5); WBC 13.5 10x3/uL (4.8-10.8)
[2018-11-06 05:28] LABS: ANION GAP 9.9 mmol/L (8-16); CARBON DIOXIDE 36.8 mmol/L (21.0-32.0); CREATININE - SERUM 0.9 mg/dL (0.6-1.3); POTASSIUM - SERUM 3.7 mmol/L (3.5-5.1)
--- NOTE | 2018-11-06 07:30 | NUR ---
ASSESSMENT DONE. DENIES NEEDS
--- NOTE | 2018-11-06 08:02 | NUR ---
RESTS IN BED WITH CALL LIGHT IN REACH. RESP UL ON HIGH FLOW. NO C/O VOICED AT THIS TIME. WILL MONITOR.
[2018-11-06 08:52] VITALS: BP 144/75
[2018-11-06 12:32] VITALS: BP 153/87
[2018-11-06 16:42] VITALS: BP 148/90
--- NOTE | 2018-11-06 18:06 | NUR ---
WITHOUT CHANGES OR DISTRESS NOTED AT THIS TIME. DENIES NEEDS.
[2018-11-06 19:00] VITALS: BP 142/87
[2018-11-07] VITALS: BP 138/73
[2018-11-07 05:04] LABS: BASOPHILS 0.1 % (0-2); EOSINOPHILS 0.1 % (0-7); HEMATOCRIT 35.7 % (36.0-48.0); HEMOGLOBIN 10.6 g/dL (12-16); IMMATURE GRANULOCYTES 1.4 % (0-5); MCH 27.6 pg (26.0-34.0); MCHC 29.7 g/dL (31.0-37.0); MEAN PLATELET VOLUME 9.4 fL (7.4-10.4); MONOCYTES 5.3 % (2-11); NEUTROPHILS 86.1 % (40-80); PLATELET COUNT 379 10x3/uL (130-400); RBC 3.84 10x6/uL (4.00-5.40); RDW 17.4 % (11.5-14.5); WBC 13.8 10x3/uL (4.8-10.8)
[2018-11-07 05:36] VITALS: BP 145/82
[2018-11-07 05:46] LABS: ANION GAP 9.1 mmol/L (8-16); CALCIUM 7.6 mg/dL (8.5-10.1); CARBON DIOXIDE 39.4 mmol/L (21.0-32.0); CREATININE - SERUM 1.1 mg/dL (0.6-1.3); MAGNESIUM - SERUM 2.5 mg/dL (1.8-2.4); POTASSIUM - SERUM 4.5 mmol/L (3.5-5.1)
--- NOTE | 2018-11-07 07:00 | NUR ---
RECEIVED REPORT. ASSUMED CARE OF PATIENT. PATIENT RECEIVING BREATHING TREATMENT. RESP THERAPY AT BEDSIDE. CALL LIGHT WITHIN REACH. PATIENT HAS SMALL PRODUCTIVE COUGH AT THIS TIME. CONTINUES TO HAVE SCATTERED WHEEZES THAT ARE COARSE. NO DISTRESS.
[2018-11-07 07:36] VITALS: BP 167/115
--- NOTE | 2018-11-07 10:41 | NUR ---
ASTELINE NASAL SPRAY AND SALINE MIST NASAL SPRAY JUST NOW AVAILABLE FROM [employer]. PATIENT ALSO WEIGHTED ON STANDING SCALE AT BEDSIDE AT THIS TIME. WT 129LBS. PATIENT IS TRYING TO WEAN HERSELF FROM OXYGEN AT THIS TIME. NO DISTRESS.
[2018-11-07 11:12] VITALS: BP 137/75
--- NOTE | 2018-11-07 12:58 | NUR ---
MEDICATED FOR PAIN AT THIS TIME. NO DISTRESS.
--- NOTE | 2018-11-07 13:35 | NUR ---
SPEECH THERAPY AT BEDSIDE FOR SWALLOW EVAL. PATIENT DID FINE PER ST, NO SIGNS OF ASPIRATION. TOLERATED ORAL INTAKE WELL.
[2018-11-07 15:13] VITALS: BP 175/86
--- NOTE | 2018-11-07 19:19 | NUR ---
RECIEVED UP IN BED WITH EYES OPEN AND SEVERAL VISITORS AT BEDSIDE. ALERT AND ORIENTED X4. UP AD BI TO B/R. LUNG SOUNDS CRACLKES RALES BILATERALLY. PRODUCTIVE COUGH WITH CLEAR SPUTUM. REQUEST XANAX AND MOTRIN WITH HS MEDS. WILL CONT. POC.
[2018-11-07 21:23] VITALS: BP 167/86
[2018-11-08 00:33] VITALS: BP 157/75
[2018-11-08 06:24] VITALS: BP 158/70
--- NOTE | 2018-11-08 06:37 | NUR ---
WHEN PUSHING SOLUMEDROL IV INFILTRATED. PT REFUSES IV TO BE REPLACED. HERE AND AWARE.
[2018-11-08 07:32] VITALS: BP 162/88
--- NOTE | 2018-11-08 07:43 | NUR ---
ASSESSMENT DONE. DENIES NEEDS.
--- NOTE | 2018-11-08 08:54 | NUR ---
UP TO BR WITHOUT NEEDS VOICED. WILL MONITOR.
[2018-11-08 11:30] VITALS: BP 144/73
[2018-11-08 15:01] VITALS: BP 158/75
--- NOTE | 2018-11-08 15:09 | NUR ---
Nutrition follow-up: Diet: Regular as tolerated; no aspiration per speech PO intake ~70% average of last 9 meals Wt: 129#->weight down ~11# from admit due to starting Lasix 11/03/18 Last BM charted 11/03 Will continue to provide food choices and honor all food preferences. RDN following.
--- NOTE | 2018-11-08 17:12 | NUR ---
ASSESSMENT DONE. DENIES NEEDS.
--- NOTE | 2018-11-08 19:53 | NUR ---
RESUMIING PATIENT CARE. PATIENT IS ALERT AND ORIENTED. WALKING IN HALLWAY WITH FAMILY. PATIENT VERY PLEASED WITH SELF THAT SHE MADE IT AROUND ONCE. RESPIRATIONS EVEN AND UNLABORED. NO S/S OF DISTRESS. NO C/O PAIN. PATIENT BOARD UPDATED. CALL LIGHT WITHIN REACH. WILL CPOC.
[2018-11-08 20:54] VITALS: BP 140/72
[2018-11-09] VITALS: BP 144/77
[2018-11-09 04:13] LABS: BASOPHILS 0 % (0-2); EOSINOPHILS 0.1 % (0-7); HEMATOCRIT 34.8 % (36.0-48.0); HEMOGLOBIN 10.7 g/dL (12-16); IMMATURE GRANULOCYTES 0.5 % (0-5); MCH 28.2 pg (26.0-34.0); MCHC 30.7 g/dL (31.0-37.0); MCV 91.6 fL (80.0-100.0); MEAN PLATELET VOLUME 9.3 fL (7.4-10.4); MONOCYTES 6.9 % (2-11); NEUTROPHILS 87.5 % (40-80); RDW 17.3 % (11.5-14.5); WBC 12.7 10x3/uL (4.8-10.8)
[2018-11-09 04:16] LABS: PLATELET COUNT 286 10x3/uL (130-400)
[2018-11-09 04:29] LABS: MAGNESIUM - SERUM 2.2 mg/dL (1.8-2.4); PHOSPHOROUS 3.2 mg/dL (2.5-4.9)
[2018-11-09 04:37] LABS: POTASSIUM - SERUM 3.3 mmol/L (3.5-5.1)
[2018-11-09 05:08] VITALS: BP 129/70
--- NOTE | 2018-11-09 08:04 | NUR ---
ROUNDING DONE WITH PATIENT LAYING IN BED FINSIHING UPDRAFT TREATMENT. ON 2L PER NC. NO IV ACCESS SEEN. NURSING MESSAGE SHOWS IV CAN STAY OUT. ON EP, K+ IS 3.3. THIS WAS COVERED AND NEW LAB WAS ORDERED.
[2018-11-09 08:59] VITALS: BP 104/58
--- NOTE | 2018-11-09 10:13 | NUR ---
REHAB PRESCREENING Rehab referral received and chart reviewed. PTand OT signed off on this patient 11/04/18. She has not received therapy since. Patient will need to be re-evaluated to determine a decline in condition in order to assess admission criteria for acute inpatient rehab. Thank you for this referral! Lorena Capone CRT Rehab Crusher Assembler
--- NOTE | 2018-11-09 10:58 | MORECARE ---
CASE MANAGEMENT DISCHARGE SUMMARY PATIENT: PACO QUISPE UNIT: [id number] ADM DATE: 10/31/18 AGE: 83 : 37 SEX: F ROOM/BED: D.5899 AUTHOR: JACKELYN FERRER PHYSICIAN: REFERRING PHYSICIAN: MATTY CRAMER DO DATE OF SERVICE: 11/09/18 Discharge Plan Patient Name: PACO QUISPE Facility: [facility]:[place] : 1935 Planned Disposition: Inpatient Rehab Anticipated Discharge Date: 11/10/18 Discharge Date: Expected LOS: 10 Initial Reviewer: [id number] Initial Review Date: 11/03/2018 Generated: 11/09/18 11:58 am Comments DCP- Discharge Planning Updated by [id number]: Jeffy Richter on 11/03/18 3:[address] Patient Name: PACO QUISPE Admission Status: ER Accout number: [id number] Admission Date: 10-31-2018 : 1935 Admission Diagnosis:PNEUMONIA, UNSPECIFIED ORGANISM Attending: Matty Cramer Current LOS: 3 Anticipated DC Date: 11-04-2018 Planned Disposition: Home Primary Insurance: MEDICARE A & B Discharge Planning Comments: CM RECEIVED ORDER FOR INPATIENT REHAB PRESCREENING. NOLAN OF INPATIENT REHAB HAS MET WITH PT TODAY AND PT REFUSED INPATIENT REHAB. CM MET WITH PT IN ROOM TO DISCUSS DISCHARGE PLANNING AND NEEDS. PT REPORTS LIVING AT HOME INDEPENDENTLY AND ALONE. PT HAS CANE, NEBULIZER, HOME OXYGEN AND ROLLING WALKER FROM [facility]. PT HAS NO OUTSIDE SERVICES ASSISTING IN THE HOME. CM DISCUSSED AVAILABILITY OF HOME HEALTH, REHAB SERVICES AND MEDICAL EQUIPMENT. 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 PT REPORTS HER SON WILL PICK HER UP FOR DISCHARGE HOME. IMPORTANT MESSAGE FROM MEDICARE PROVIDED AND EXPLAINED. PT REFUSED REHAB AND HOME HEALTH SERVICES, PLANS TO DISCHARGE HOME ALONE, FAMILY TO TRANSPORT. CM TO FOLLOW AND ASSIST IF NEEDED. Chief Operator: Jeffy Richter DCPIA - Discharge Planning Initial Assessment Updated by [id number]: Jeffy Richter on 11/03/18 4:46 pm * Is the patient Alert and Oriented? Yes * How many steps to enter\exit or inside your home? * PCP DR. CRAMER * Pharmacy [facility] [address] * Preadmission Environment Home Alone * ADLs Independent * Equipment Cane Nebulizer Oxygen Rolling Walker * Other Equipment OXYGEN AT NIGHT [facility] - OXYGEN PROVIDER * List name and contact numbers for known caregivers / representatives who currently or will assist patient after discharge: HENNA DASH, SON, CYNDI QUISPE, SON, * Verbal permission to speak to the caregivers and representatives has been obtained from the patient. N/A * Community resources currently utilized None * Please name any agencies selected above. NONE * Additional services required to return to the preadmission environment? No * Can the patient safely return to the preadmission environment? Yes * Has this patient been hospitalized within the prior 30 days at any hospital? No Coverage Notice Reviewer: [id number] Christiane Richter Notice Issued Date-Time: 11/03/2018 12:10 Notice Type: IM Discharge Notice Notice Delivered To: Patient Relationship to Patient: Walking Dragline Operator Name: Delivery Method: HAND - Hand Delivered Mee Days: Prior Verbal Notification: Recipient Understood Notice: Yes Recipient Signature: Yes Med Rec Note Co-signed by Attending: Coverage Notice Comment: Last DP export: 11/03/18 4:08 Patient Name: PACO QUISPE Page [id number] at 1058 All edits/amendments must be made on the electronic document DICTATION DATE: 11/09/18 1057 PEDICURIST: ANABELLA 11/09/18 1057 RPT#: [id number] DC DATE: STATUS: ADM IN [facility] [address] [place] [address] END OF REPORT
--- NOTE | 2018-11-09 11:06 | MORECARE ---
CASE MANAGEMENT DISCHARGE SUMMARY PATIENT: PACO QUISPE UNIT: [id number] ADM DATE: 10/31/18 AGE: 83 : 37 SEX: F ROOM/BED: D.8980 AUTHOR: JACKELYN FERRER PHYSICIAN: REFERRING PHYSICIAN: PABLO CRAMER DO DATE OF SERVICE: 11/09/18 Discharge Plan Patient Name: PACO QUISPE [facility] [facility] 1935 Planned Disposition: Inpatient Rehab Anticipated Discharge Date: 11/10/18 Discharge Date: Expected LOS: 10 Initial Reviewer: [id number] Initial Review Date: 11/03/2018 Generated: 11/09/18 12:06 pm Comments DCP- Discharge Planning Updated by [id number]: Jeffy Richter on 11/09/18 10:[address] Patient Name: PACO QUISPE Encounter No: [id number] : 1935 Primary Insurance: MEDICARE A & B Anticipated DC Date: 11-10-2018 Planned Disposition: Inpatient Rehab External Planned Provider: [facility] DCP follow-up note: CM RECEIVED ORDER FOR INPATIENT REHAB PRESCREENING, MET WITH PT IN ROOM TO DISCUSS ORDER AND REHAB OPTIONS, LOCATIONS AND PROVIDERS. PT WANTS TO BE CONSIDERED FOR REHAB AT [facility] BUT IS UNSURE IF SHE WANTS TO STAY FOR MORE THAN 7 DAYS. PT WOULD LIKE TO TALK TO SOMEONE FROM REHAB TO MAKE HER DECISION REGARDING REHAB. PT WILL NOT CONSIDER [facility] FOR REHAB NOR WILL SHE CONSIDER HOME HEALTH SERVICES. PT DENIES HAVING ANY NEEDS IF SHE DISCHARGES HOME. IMPORTANT MESSAGE FROM MEDICARE PROVIDED AND EXPLAINED. CM CALLED AND NOTIFIED MARBELLA OF INPATIENT REHAB WHO WILL SPEAK TO PT; ORDER FOR NEW PHYSICAL THERAPY EVALUATION OBTAINED PHYSICAL THERAPY HAS PREVIOUSLY SIGNED OFF TO NURSING. CM WAITING PHYSICAL THERAPY EVALUATION AND INPATIENT REHAB PRESCREEN RESULTS FROM [facility]. PHILOMENA Dunaway DCP- Discharge Planning Updated by [email or web address]: Jeffy Richter on 11/03/18 3:[address] Patient Name: PACO QUISPE Admission Status: ER Accout number: [id number] Admission Date: 10-31-2018 : 1935 Admission Diagnosis:PNEUMONIA, UNSPECIFIED ORGANISM Attending: Pablo Cramer Current LOS: 3 Anticipated DC Date: 11-04-2018 Planned Disposition: Home Primary Insurance: MEDICARE A & B Discharge Planning Comments: CM RECEIVED ORDER FOR INPATIENT REHAB PRESCREENING. NOLAN OF INPATIENT REHAB HAS MET WITH PT TODAY AND PT REFUSED INPATIENT REHAB. CM MET WITH PT IN ROOM TO DISCUSS DISCHARGE PLANNING AND NEEDS. PT REPORTS LIVING AT HOME INDEPENDENTLY AND ALONE. PT HAS CANE, NEBULIZER, HOME OXYGEN AND ROLLING WALKER FROM [facility]. PT HAS NO OUTSIDE SERVICES ASSISTING IN THE HOME. CM DISCUSSED AVAILABILITY OF HOME HEALTH, REHAB SERVICES AND MEDICAL EQUIPMENT. 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 PT REPORTS HER SON WILL PICK HER UP FOR DISCHARGE HOME. IMPORTANT MESSAGE FROM MEDICARE PROVIDED AND EXPLAINED. PT REFUSED REHAB AND HOME HEALTH SERVICES, PLANS TO DISCHARGE HOME ALONE, FAMILY TO TRANSPORT. CM TO FOLLOW AND ASSIST IF NEEDED. Informatics Application Analyst: Jeffy Richter DCPIA - Discharge Planning Initial Assessment Updated by [id number]: Jeffy Richter on 11/03/18 4:46 pm * Is the patient Alert and Oriented? Yes * How many steps to enter\exit or inside your home? * PCP DR. CRAMER * Pharmacy [facility] [address] * Preadmission Environment Home Alone * ADLs Independent * Equipment Cane Nebulizer Oxygen Rolling Walker * Other Equipment OXYGEN AT NIGHT [facility] - OXYGEN PROVIDER * List name and contact numbers for known caregivers / representatives who currently or will assist patient after discharge: HENNA BAILEYTIBURCIOGregg, SON, CYNDI BAILEYPILLOGregg, SON, * Verbal permission to speak to the caregivers and representatives has been obtained from the patient. N/A * Community resources currently utilized None * Please name any agencies selected above. NONE * Additional services required to return to the preadmission environment? No * Can the patient safely return to the preadmission environment? Yes * Has this patient been hospitalized within the prior 30 days at any hospital? No Coverage Notice Reviewer: [id number] - Jeffy Richter Notice Issued Date-Time: 11/03/2018 12:10 Notice Type: IM Discharge Notice Notice Delivered To: Patient Relationship to Patient: Foot And Ankle Surgeon Name: Delivery Method: HAND - Hand Delivered Mee Days: Prior Verbal Notification: Recipient Understood Notice: Yes Recipient Signature: Yes Med Rec Note Co-signed by Attending: Coverage Notice Comment: Reviewer: [id number] - Jeffy Richter Notice Issued Date-Time: 11/09/2018 10:55 Notice Type: IM Discharge Notice Notice Delivered To: Patient Relationship to Patient: Foot And Ankle Surgeon Name: Delivery Method: HAND - Hand Delivered Mee Days: Prior Verbal Notification: Recipient Understood Notice: Yes Recipient Signature: Yes Med Rec Note Co-signed by Attending: Coverage Notice Comment: Last DP export: 11/09/18 9:58 am Patient Name: PACO QUISPE Page [phone] at 1106 All edits/amendments must be made on the electronic document DICTATION DATE: 11/09/181104 HADOOP ADMINISTRATOR: ANABELLA 11/09/181104 RPT#: [id number] DC DATE: STATUS: ADM IN [facility] [address] [place] [address] END OF REPORT
--- NOTE | 2018-11-09 12:02 | NUR ---
RE-DRAW OF K+ IS 3.7.
[2018-11-09 12:45] VITALS: BP 131/71
--- NOTE | 2018-11-09 12:45 | NUR ---
COMP;AINTS OF BACK PAIN 08/16, MOTRIN GIVEN. C/O BEING COLD. WARM BLANKET PLACED NEXT TO PATIENT THEN COVERED UP FOR INCREASED WARMTH. CALL LIGHT IN REACH.
--- NOTE | 2018-11-09 15:06 | NUR ---
LAYING IN BED RESTING, DENIES NEEDS AT THIS TIME. OXYGEN IS ON AND IN USE. WILL CONTINUE TO MONITOR FOR ANY CHANGES OR NEEDS.
--- NOTE | 2018-11-09 15:28 | NUR ---
Rehab Note- Noted per PT note, the patient is too high level and does not meet the requirement for inpatient acute rehab at this time. Spoke to JUDE Naylor. Thank you for this referral! Aparna Johnston RN Clinical Liaison, [facility] Rehab
[2018-11-09 15:48] VITALS: BP 123/71
--- NOTE | 2018-11-09 15:48 | NUR ---
PATIENT HAS JUST RECEVIED LIDOCAINE BREATHING TREATMENT. PATIENT IS NPO FOR ONE HOUR POST TREATMENT. UNABLE TO GIVE LASIX AND TESSO. DEANDRA AT THIS TIME.
--- NOTE | 2018-11-09 20:18 | NUR ---
RESUMING PATIENT CARE. PATIENT ALERT AND ORIENTED. RESPIRATIONS ARE EVEN AND UNLABORED. NO S/S OF DISTRESS. NO C/O PAIN. PATIENT BOARD UPDATED. CALL LIGHT WITHIN REACH. WILL CPOC.
[2018-11-09 21:41] VITALS: BP 118/72
[2018-11-10 01:23] VITALS: BP 168/89
[2018-11-10 05:44] VITALS: BP 136/71
[2018-11-10] MEDS ORDERED: OMNICEF300 MG PO (06:42)
[2018-11-10] MEDS ORDERED: BROVANA15 MCG/2 M INH (06:42)
[2018-11-10] MEDS ORDERED: PULMICORT0.5 MG/21 UPD (06:43)
[2018-11-10] MEDS ORDERED: LASIX40 MG PO (06:43)
[2018-11-10] MEDS ORDERED: DALIRESP500 MCG PO (06:43)
[2018-11-10] MEDS ORDERED: SINGULAIR10 MG PO (06:43)
[2018-11-10] MEDS ORDERED: DOXYCYCLINE HY100 M2 PO (06:44)
[2018-11-10] MEDS ORDERED: AZELASTINE137 MCG/0. NASAL (06:44)
[2018-11-10] MEDS ORDERED: PREDNISONE10 MG PO (06:46)
--- NOTE | 2018-11-10 07:07 | NUR ---
ROUNDING DONE WITH PATIENT VOICING NO NEEDS EXCEPT FOR SOME COFFEE WITH TWO CREAMERS. GIVEN. ON 2L PER NC. BILATERAL LIGHT WHEEZES HEARD THROUGOUT LUNG TINAJERO. DR CRAMER JUST LEFT ROOM, PATIENT IS TO BE DISCHARGED TODAY. LEFT ARM SEEN WITH LARGE BRUISED AREA, LEFT AC OLD KNOT TO IT FROM DRAWS. CALL LIGHT IN REACH.
[2018-11-10 08:37] VITALS: BP 128/77
--- NOTE | 2018-11-10 09:29 | MORECARE ---
CASE MANAGEMENT DISCHARGE SUMMARY PATIENT: PACO QUISPE UNIT: [id number] ADM DATE: 10/31/18 AGE: 83 : 37 SEX: F ROOM/BED: D.0124 AUTHOR: JACKELYN FERRER PHYSICIAN: REFERRING PHYSICIAN: PABLO CRAMER DO DATE OF SERVICE: 11/10/18 Discharge Plan Patient Name: PACO QUISPE [facility] [facility] 1935 Planned Disposition: Home with Home Health Anticipated Discharge Date: 11/10/18 Discharge Date: Expected LOS: 10 Initial Reviewer: [id number] Initial Review Date: 11/03/2018 Generated: 11/10/18 10:29 am Comments DCP- Discharge Planning Updated by [id number]: Jeffy Richter on 11/09/18 10:[address] Patient Name: PACO QUISPE Encounter No: [id number] : 1935 Primary Insurance: MEDICARE A & B Anticipated DC Date: 11-10-2018 Planned Disposition: Inpatient Rehab External Planned Provider: [facility] DCP follow-up note: CM RECEIVED ORDER FOR INPATIENT REHAB PRESCREENING, MET WITH PT IN ROOM TO DISCUSS ORDER AND REHAB OPTIONS, LOCATIONS AND PROVIDERS. PT WANTS TO BE CONSIDERED FOR REHAB AT [place] BUT IS UNSURE IF SHE WANTS TO STAY FOR MORE THAN 7 DAYS. PT WOULD LIKE TO TALK TO SOMEONE FROM REHAB TO MAKE HER DECISION REGARDING REHAB. PT WILL NOT CONSIDER PRISON FACILITY FOR REHAB NOR WILL SHE CONSIDER HOME HEALTH SERVICES. PT DENIES HAVING ANY NEEDS IF SHE DISCHARGES HOME. IMPORTANT MESSAGE FROM MEDICARE PROVIDED AND EXPLAINED. CM CALLED AND NOTIFIED MARBELLA OF INPATIENT REHAB WHO WILL SPEAK TO PT; ORDER FOR NEW PHYSICAL THERAPY EVALUATION OBTAINED PHYSICAL THERAPY HAS PREVIOUSLY SIGNED OFF TO NURSING. CM WAITING PHYSICAL THERAPY EVALUATION AND INPATIENT REHAB PRESCREEN RESULTS FROM [facility] INPATIENT [facility]. PHILOMENA Dunaway DCP- Discharge Planning Updated by [id number]: Jeffy Richter on 11/03/18 3:[address] Patient Name: PACO QUISPE Admission Status: ER Accout number: [id number] Admission Date: 10-31-2018 : 1935 Admission Diagnosis:PNEUMONIA, UNSPECIFIED ORGANISM Attending: Pablo Cramer Current LOS: 3 Anticipated DC Date: 11-04-2018 Planned Disposition: Home Primary Insurance: MEDICARE A & B Discharge Planning Comments: CM RECEIVED ORDER FOR INPATIENT REHAB PRESCREENING. NOLAN OF INPATIENT REHAB HAS MET WITH PT TODAY AND PT REFUSED INPATIENT REHAB. CM MET WITH PT IN ROOM TO DISCUSS DISCHARGE PLANNING AND NEEDS. PT REPORTS LIVING AT HOME INDEPENDENTLY AND ALONE. PT HAS CANE, NEBULIZER, HOME OXYGEN AND ROLLING WALKER FROM [facility]. PT HAS NO OUTSIDE SERVICES ASSISTING IN THE HOME. CM DISCUSSED AVAILABILITY OF HOME HEALTH, REHAB SERVICES AND MEDICAL EQUIPMENT. 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 PT REPORTS HER SON WILL PICK HER UP FOR DISCHARGE HOME. IMPORTANT MESSAGE FROM MEDICARE PROVIDED AND EXPLAINED. PT REFUSED REHAB AND HOME HEALTH SERVICES, PLANS TO DISCHARGE HOME ALONE, FAMILY TO TRANSPORT. CM TO FOLLOW AND ASSIST IF NEEDED. Heat Treater Apprentice: Jeffy Richter DCPIA - Discharge Planning Initial Assessment Updated by [email or web address]: Jeffy Richter on 11/03/18 4:46 pm * Is the patient Alert and Oriented? Yes * How many steps to enter\exit or inside your home? * PCP DR. CRAMER * Pharmacy [facility] [address] * Preadmission Environment Home Alone * ADLs Independent * Equipment Cane Nebulizer Oxygen Rolling Walker * Other Equipment OXYGEN AT NIGHT [facility] - OXYGEN PROVIDER * List name and contact numbers for known caregivers / representatives who currently or will assist patient after discharge: HENNA BAILEYTIBURCIOGregg, SON, CYNDI BAILEYPILLOGregg, SON, * Verbal permission to speak to the caregivers and representatives has been obtained from the patient. N/A * Community resources currently utilized None * Please name any agencies selected above. NONE * Additional services required to return to the preadmission environment? No * Can the patient safely return to the preadmission environment? Yes * Has this patient been hospitalized within the prior 30 days at any hospital? No External Providers [facility] Next Contact Date: 11/10/2018 Service Request Date: Service Type: Resolution: Reviewer: Comments: Coverage Notice Reviewer: [id number] - Jeffy Richter Notice Issued Date-Time: 11/03/2018 12:10 Notice Type: IM Discharge Notice Notice Delivered To: Patient Relationship to Patient: Etl Analyst Developer Name: Delivery Method: HAND - Hand Delivered Mee Days: Prior Verbal Notification: Recipient Understood Notice: Yes Recipient Signature: Yes Med Rec Note Co-signed by Attending: Coverage Notice Comment: Reviewer: [id number] Christiane Richter Notice Issued Date-Time: 11/09/2018 10:55 Notice Type: IM Discharge Notice Notice Delivered To: Patient Relationship to Patient: Etl Analyst Developer Name: Delivery Method: HAND - Hand Delivered Mee Days: Prior Verbal Notification: Recipient Understood Notice: Yes Recipient Signature: Yes Med Rec Note Co-signed by Attending: Coverage Notice Comment: Last DP export: 11/09/18 10:06 am Patient Name: PACO QUISPE Page [id number] at 0929 All edits/amendments must be made on the electronic document DICTATION DATE: 11/10/18927 CERTIFIED GREEN BUILDING ENGINEER: ANABELLA 11/10/18927 RPT#: [id number] DC DATE: STATUS: ADM IN [facility] [address] [place] [address] END OF REPORT
--- NOTE | 2018-11-10 09:50 | MORECARE ---
CASE MANAGEMENT DISCHARGE SUMMARY PATIENT: PACO QUISPE UNIT: [id number] ADM DATE: 10/31/18 AGE: 83 : 37 SEX: F ROOM/BED: D.9671 AUTHOR: JACKELYN FERRER PHYSICIAN: REFERRING PHYSICIAN: PABLO CRAMER DO DATE OF SERVICE: 11/10/18 Discharge Plan Patient Name: PACO QUISPE Facility: [facility]:[place] : 1935 Planned Disposition: Home with Home Health Anticipated Discharge Date: 11/10/18 Discharge Date: Expected LOS: 10 Initial Reviewer: [id number] Initial Review Date: 11/03/2018 Generated: 11/10/18 10:50 am Comments DCP- Discharge Planning Updated by [id number]: Jeffy Richter on 11/10/18 8:[address] Patient Name: PACO QUISPE Encounter No: [id number] : 1935 Primary Insurance: MEDICARE A & B Anticipated DC Date: 11-10-2018 Planned Disposition: Home with Home Health External Planned Provider: [facility] DCP follow-up note: CM RECEIVED ORDER FOR HOME HEALTH, MET WITH PT IN ROOM, DISCUSSED ORDER AND HOME HEALTH AVAILABILITY AND PROVIDERS. PT WILL ACCEPT HOME HEALTH AND CHOSE [facility], CHOICE SIGNED. PT DENIES FURHTER NEEDS, FAMILY TO STIFF NECK LOADER FOR DISCHARGE HOME. CM CALLED [facility], , PROVIDED REFERRAL TO [facility] WILL ACCEPT PT. CM FAXED REFERRAL TO [facility] AT [phone]. INVESTIGATION SPECIALIST NURSE NOTIFIED. Jeffy Richter, CASE MANAGEMENT DCP- Discharge Planning Updated by [email or web address]: Jeffy Richter on 11/09/18 10:[address] Patient Name: PACO QUISPE Encounter No: [id number] : 1935 Primary Insurance: MEDICARE A & B Anticipated DC Date: 11-10-2018 Planned Disposition: Inpatient Rehab External Planned Provider: [facility] DCP follow-up note: CM RECEIVED ORDER FOR INPATIENT REHAB PRESCREENING, MET WITH PT IN ROOM TO DISCUSS ORDER AND REHAB OPTIONS, LOCATIONS AND PROVIDERS. PT WANTS TO BE CONSIDERED FOR REHAB AT [place] BUT IS UNSURE IF SHE WANTS TO STAY FOR MORE THAN 7 DAYS. PT WOULD LIKE TO TALK TO SOMEONE FROM REHAB TO MAKE HER DECISION REGARDING REHAB. PT WILL NOT CONSIDER [facility] FOR [facility]HAB NOR WILL SHE CONSIDER HOME HEALTH SERVICES. PT DENIES HAVING ANY NEEDS IF SHE DISCHARGES HOME. IMPORTANT MESSAGE FROM MEDICARE PROVIDED AND EXPLAINED. CM CALLED AND NOTIFIED MARBELLA OF INPATIENT REHAB WHO WILL SPEAK TO PT; ORDER FOR NEW PHYSICAL THERAPY EVALUATION OBTAINED PHYSICAL THERAPY HAS PREVIOUSLY SIGNED OFF TO NURSING. CM WAITING PHYSICAL THERAPY EVALUATION AND INPATIENT REHAB PRESCREEN RESULTS FROM [facility] INPATIENT RE[facility]. Jeffy Richter, CASE MANAGEMENT DCP- Discharge Planning Updated by [id number]: Jeffy Richter on 11/03/18 3:[address] Patient Name: PACO QUISPE Admission Status: ER Accout number: [id number] Admission Date: 10-31-2018 : 1935 Admission Diagnosis:PNEUMONIA, UNSPECIFIED ORGANISM Attending: Pablo Cramer Current LOS: 3 Anticipated DC Date: 11-04-2018 Planned Disposition: Home Primary Insurance: MEDICARE A & B Discharge Planning Comments: CM RECEIVED ORDER FOR INPATIENT REHAB PRESCREENING. NOLAN OF INPATIENT REHAB HAS MET WITH PT TODAY AND PT REFUSED INPATIENT REHAB. CM MET WITH PT IN ROOM TO DISCUSS DISCHARGE PLANNING AND NEEDS. PT REPORTS LIVING AT HOME INDEPENDENTLY AND ALONE. PT HAS CANE, NEBULIZER, HOME OXYGEN AND ROLLING WALKER FROM [facility]. PT HAS NO OUTSIDE SERVICES ASSISTING IN THE HOME. CM DISCUSSED AVAILABILITY OF HOME HEALTH, REHAB SERVICES AND MEDICAL EQUIPMENT. 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 PT REPORTS HER SON WILL PICK HER UP FOR DISCHARGE HOME. IMPORTANT MESSAGE FROM MEDICARE PROVIDED AND EXPLAINED. PT REFUSED REHAB AND HOME HEALTH SERVICES, PLANS TO DISCHARGE HOME ALONE, FAMILY TO TRANSPORT. CM TO FOLLOW AND ASSIST IF NEEDED. Welding Machine Operator Submerged Arc: Jeffy Richter DCPIA - Discharge Planning Initial Assessment Updated by [id number]: Jeffy Richter on 11/03/18 4:46 pm * Is the patient Alert and Oriented? Yes * How many steps to enter\exit or inside your home? * PCP DR. CRAMER * Pharmacy [facility] [address] * Preadmission Environment Home Alone * ADLs Independent * Equipment Cane Nebulizer Oxygen Rolling Walker * Other Equipment OXYGEN AT NIGHT [facility] - OXYGEN PROVIDER * List name and contact numbers for known caregivers / representatives who currently or will assist patient after discharge: HENNA DASH, VENICE, CYNDI QUISPE, SON, * Verbal permission to speak to the caregivers and representatives has been obtained from the patient. N/A * Community resources currently utilized None * Please name any agencies selected above. NONE * Additional services required to return to the preadmission environment? No * Can the patient safely return to the preadmission environment? Yes * Has this patient been hospitalized within the prior 30 days at any hospital? No Coverage Notice Reviewer: IVON Richter Notice Issued Date-Time: 11/03/2018 12:10 Notice Type: IM Discharge Notice Notice Delivered To: Patient Relationship to Patient: Representative Personal Service Name: Delivery Method: HAND - Hand Delivered Mee Days: Prior Verbal Notification: Recipient Understood Notice: Yes Recipient Signature: Yes Med Rec Note Co-signed by Attending: Coverage Notice Comment: Reviewer: IVON Richter Notice Issued Date-Time: 11/09/2018 10:55 Notice Type: IM Discharge Notice Notice Delivered To: Patient Relationship to Patient: Representative Personal Service Name: Delivery Method: HAND - Hand Delivered Mee Days: Prior Verbal Notification: Recipient Understood Notice: Yes Recipient Signature: Yes Med Rec Note Co-signed by Attending: Coverage Notice Comment: Last DP export: 11/10/18 8:29 am Patient Name: PACO QUISPE Page [id number] at 0950 All edits/amendments must be made on the electronic document DICTATION DATE: 11/10/18948 THREAT ANALYST: ANABELLA 11/10/1849 RPT#: [id number] DC DATE: STATUS: ADM IN [facility] [address] [place] [address] END OF REPORT
[2018-11-10 11:54] VITALS: BP 143/77
--- NOTE | 2018-11-10 13:09 | NUR ---
DENIES NEEDS, SITTING ON SIDE OF BED WAITING ON RIDE FOR DISCHARGE PAPERWORK AND DISCHARGE.
--- NOTE | 2018-11-13 12:43 | MORECARE ---
CASE MANAGEMENT DISCHARGE SUMMARY PATIENT: PACO QUISPE UNIT: [id number] ADM DATE: 10/31/18 AGE: 83 : 37 SEX: F ROOM/BED: D.4529 AUTHOR: JACKELYN FERRER PHYSICIAN: REFERRING PHYSICIAN: PABLO CRAMER DO DATE OF SERVICE: 11/13/18 Discharge Plan Patient Name: PACO QUISPE Facility: [facility]:[place] : 1935 Planned Disposition: Home with Home Health Anticipated Discharge Date: 11/10/18 Discharge Date: 11/10/2018 Expected LOS: 10 Initial Reviewer: [id number] Initial Review Date: 11/03/2018 Generated: 11/13/18 1:43 pm Comments DCP- Discharge Planning Updated by [id number]: Jeffy Richter on 11/10/18 8:[address] Patient Name: PACO QUISPE Encounter No: [id number] : 1935 Primary Insurance: MEDICARE A & B Anticipated DC Date: 11-10-2018 Planned Disposition: Home with Home Health External Planned Provider[facility] DCP follow-up note: CM RECEIVED ORDER FOR HOME HEALTH, MET WITH PT IN ROOM, DISCUSSED ORDER AND HOME HEALTH AVAILABILITY AND PROVIDERS. PT WILL ACCEPT HOME HEALTH AND CHOSE [facility], CHOICE SIGNED. PT DENIES FURHTER NEEDS, FAMILY TO JUNIOR NETWORK ADMINISTRATOR FOR DISCHARGE HOME. CM CALLED [facility], , PROVIDED REFERRAL TO [facility] WHO WILL ACCEPT PT. CM FAXED REFERRAL TO [facility] AT [phone]. GROUP PRODUCT MANAGER NURSE NOTIFIED. Jeffy Richter, CASE MANAGEMENT DCP- Discharge Planning Updated by [id number]: Jeffy Richter on 11/09/18 10:[address] Patient Name: PACO QUISPE Encounter No: [id number] : 1935 Primary Insurance: MEDICARE A & B Anticipated DC Date: 11-10-2018 Planned Disposition: Inpatient Rehab External Planned Provider: [facility] DCP follow-up note: CM RECEIVED ORDER FOR INPATIENT REHAB PRESCREENING, MET WITH PT IN ROOM TO DISCUSS ORDER AND REHAB OPTIONS, LOCATIONS AND PROVIDERS. PT WANTS TO BE CONSIDERED FOR REHAB AT [place] BUT IS UNSURE IF SHE WANTS TO STAY FOR MORE THAN 7 DAYS. PT WOULD LIKE TO TALK TO SOMEONE FROM REHAB TO MAKE HER DECISION REGARDING REHAB. PT WILL NOT CONSIDER INTERMEDIATE FACILITY FOR REHAB NOR WILL SHE CONSIDER HOME HEALTH SERVICES. PT DENIES HAVING ANY NEEDS IF SHE DISCHARGES HOME. IMPORTANT MESSAGE FROM MEDICARE PROVIDED AND EXPLAINED. CM CALLED AND NOTIFIED MARBELLA OF INPATIENT REHAB WHO WILL SPEAK TO PT; ORDER FOR NEW PHYSICAL THERAPY EVALUATION OBTAINED PHYSICAL THERAPY HAS PREVIOUSLY SIGNED OFF TO NURSING. CM WAITING PHYSICAL THERAPY EVALUATION AND INPATIENT REHAB PRESCREEN RESULTS FROM [facility]. Jeffy Richter, CASE MANAGEMENT DCP- Discharge Planning Updated by [id number]: Jeffy Richter on 11/03/18 3:[address] Patient Name: PACO QUISPE Admission Status: ER Accout number: [id number] Admission Date: 10-31-2018 : 1935 Admission Diagnosis:PNEUMONIA, UNSPECIFIED ORGANISM Attending: Pablo Cramer Current LOS: 3 Anticipated DC Date: 11-04-2018 Planned Disposition: Home Primary Insurance: MEDICARE A & B Discharge Planning Comments: CM RECEIVED ORDER FOR INPATIENT REHAB PRESCREENING. NOLAN OF INPATIENT REHAB HAS MET WITH PT TODAY AND PT REFUSED INPATIENT REHAB. CM MET WITH PT IN ROOM TO DISCUSS DISCHARGE PLANNING AND NEEDS. PT REPORTS LIVING AT HOME INDEPENDENTLY AND ALONE. PT HAS CANE, NEBULIZER, HOME OXYGEN AND ROLLING WALKER FROM [facility] [place]. PT HAS NO OUTSIDE SERVICES ASSISTING IN THE HOME. CM DISCUSSED AVAILABILITY OF HOME HEALTH, REHAB SERVICES AND MEDICAL EQUIPMENT. 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 PT REPORTS HER SON WILL PICK HER UP FOR DISCHARGE HOME. IMPORTANT MESSAGE FROM MEDICARE PROVIDED AND EXPLAINED. PT REFUSED REHAB AND HOME HEALTH SERVICES, PLANS TO DISCHARGE HOME ALONE, FAMILY TO TRANSPORT. CM TO FOLLOW AND ASSIST IF NEEDED. Steam Finisher: Jeffy Richter DCPIA - Discharge Planning Initial Assessment Updated by [email or web address]: Jeffy Richter on 11/03/18 4:46 pm * Is the patient Alert and Oriented? Yes * How many steps to enter\exit or inside your home? * PCP DR. CRAMER * Pharmacy [facility] [address] * Preadmission Environment Home Alone * ADLs Independent * Equipment Cane Nebulizer Oxygen Rolling Walker * Other Equipment OXYGEN AT NIGHT [facility] - OXYGEN PROVIDER * List name and contact numbers for known caregivers / representatives who currently or will assist patient after discharge: HENNA DASH, VENICE, CYNDI QUISPE, SON, * Verbal permission to speak to the caregivers and representatives has been obtained from the patient. N/A * Community resources currently utilized None * Please name any agencies selected above. NONE * Additional services required to return to the preadmission environment? No * Can the patient safely return to the preadmission environment? Yes * Has this patient been hospitalized within the prior 30 days at any hospital? No Coverage Notice Reviewer: [id number] Richter Notice Issued Date-Time: 11/03/2018 12:10 Notice Type: IM Discharge Notice Notice Delivered To: Patient Relationship to Patient: Felt Pad Cutter Name: Delivery Method: HAND - Hand Delivered Mee Days: Prior Verbal Notification: Recipient Understood Notice: Yes Recipient Signature: Yes Med Rec Note Co-signed by Attending: Coverage Notice Comment: Reviewer: IVON Richter Notice Issued Date-Time: 11/09/2018 10:55 Notice Type: IM Discharge Notice Notice Delivered To: Patient Relationship to Patient: Felt Pad Cutter Name: Delivery Method: HAND - Hand Delivered Mee Days: Prior Verbal Notification: Recipient Understood Notice: Yes Recipient Signature: Yes Med Rec Note Co-signed by Attending: Coverage Notice Comment: Last DP export: 11/10/18 8:50 am Patient Name: PACO QUISPE Page [phone] at 1243 All edits/amendments must be made on the electronic document DICTATION DATE: 11/13/18 1243 FACTORY FOCUS TECHNICIAN: ANABELLA 11/13/18 1243 RPT#: [id number] DC DATE:11/10/18 STATUS: DIS IN [facility] [address] [place] [address] END OF REPORT
== END 2018-11-10 14:08 | disposition home health service (06) | DRG 193 ==
LOC: D.ER 19:42 → D.M2 10-31 01:26 → D.SDCHOLD 11-04 19:34 → D.M2 11-04 19:36
PROVIDERS: Family Medicine; Internal Medicine Pulmonary Disease; ADMIT Family Medicine
DX: J18.1 Lobar pneumonia, unspecified organism (principal); J96.01 Acute respiratory failure with hypoxia; J44.0 Chronic obstructive pulmonary disease with (acute) lower respiratory infection; J44.1 Chronic obstructive pulmonary disease with (acute) exacerbation; I13.0 Hypertensive heart and chronic kidney disease with heart failure and stage 1 through stage 4 chronic kidney disease, or unspecified chronic kidney disease; I50.22 Chronic systolic (congestive) heart failure; J98.11 Atelectasis; I77.810 Thoracic aortic ectasia; N18.3 Chronic kidney disease, stage 3 (moderate); R91.1 Solitary pulmonary nodule; E87.6 Hypokalemia; J20.9 Acute bronchitis, unspecified; E83.51 Hypocalcemia

== ENCOUNTER → 2019-03-06 00:03 | Outpatient (CLI) | payer MEDICARE, BC ==
[~2019-03-06 00:03] MED LIST changes: +AZELASTINE137 MCG/0. NASAL; +BROVANA15 MCG/2 M INH; +DALIRESP500 MCG PO; +DOXYCYCLINE HY100 M2 PO; +LASIX40 MG PO; +PULMICORT0.5 MG/21 UPD; +SINGULAIR10 MG PO
[2019-03-08 09:13] LABS: IMMUNOGLOBULIN A 196 mg/dL (64-422); IMMUNOGLOBULIN G 614 mg/dL (700-1600); IMMUNOGLOBULIN M 34 mg/dL (26-217)
[2019-03-15 03:07] LABS: IMMUNOGLOBULIN E 13 IU/mL (6-495)
== END | disposition home or self-care (01) ==
LOC: D.LABREF 00:03
PROVIDERS: Internal Medicine Pulmonary Disease
DX: R91.8 Other nonspecific abnormal finding of lung field (principal)

== ENCOUNTER → 2019-03-19 11:01 | Outpatient (CLI) | payer MEDICARE, BC ==
[2018-11-03 13:03] VITALS: BMI 39.7
== END | disposition home or self-care (01) ==
LOC: D.CT 11:01
PROVIDERS: ATTEND Internal Medicine Pulmonary Disease
DX: R91.8 Other nonspecific abnormal finding of lung field (principal)

== ENCOUNTER → 2019-09-19 10:00 | Outpatient (CLI) | payer MEDICARE, BC ==
[2018-11-03 13:03] VITALS: BMI 39.7
== END | disposition home or self-care (01) ==
LOC: D.CT 10:00
PROVIDERS: ATTEND Internal Medicine Pulmonary Disease
DX: R91.8 Other nonspecific abnormal finding of lung field (principal)

== ENCOUNTER → 2020-07-30 16:45 | Outpatient (CLI) | payer MEDICARE, BC ==
[2018-11-03 13:03] VITALS: BMI 39.7
== END | disposition home or self-care (01) ==
LOC: D.LABREF 16:45
PROVIDERS: ATTEND Family Medicine
DX: I13.0 Hypertensive heart and chronic kidney disease with heart failure and stage 1 through stage 4 chronic kidney disease, or unspecified chronic kidney disease (principal)